=== PATIENT | male | born 1945 | race Caucasian/White ===

== ENCOUNTER → 2016-10-27 | Outpatient (CLI) | payer OTHER, BC ==
[2016-10-27 13:55] LABS: BLOOD UREA NITROGEN 22 mg/dl (7-18); GLUCOSE 91 mg/dl (70-99)
[2016-10-27 13:56] LABS: ALT/SGPT 65 U/L (12-78); AST/SGOT 26 U/L (15-37); BUN/CREATININE RATIO 22.4 (10-20); CALCIUM 8.5 mg/dl (8.5-10.1); CARBON DIOXIDE 26 mmol/L (21-32); CHLORIDE 108 mmol/L (98-107); CHOLESTEROL 105 mg/dl (0-200); SODIUM 142 mmol/L (136-145)
[2016-10-27 14:00] LABS: ALB/GLOB RATIO 1.1 (0.9-2); ALKALINE PHOSPHATASE 51 U/L (45-117); CHOLESTEROL/HDL RATIO 3.2; HDL CHOLESTEROL 33 mg/dl; LDL CHOLESTEROL CALCULATED 53 mg/dl; TRIGLYCERIDES 94 mg/dl (0-150); VERY LOW DENSITY LIPOPROT CALC 19 mg/dl
== END | disposition home or self-care (01) ==
LOC: C.LABPVFM 07:31
PROVIDERS: ATTEND Family Medicine
DX: E78.5 Hyperlipidemia, unspecified (principal); J38.7 Other diseases of larynx; L03.90 Cellulitis, unspecified

== ENCOUNTER → 2017-05-03 | Outpatient (CLI) | payer OTHER, BC ==
[2017-05-03 13:18] LABS: ALT/SGPT 61 U/L (12-78); AST/SGOT 31 U/L (15-37); BLOOD UREA NITROGEN 19 mg/dl (7-18); BUN/CREATININE RATIO 18.2 (10-20); CALCIUM 8.5 mg/dl (8.5-10.1); CARBON DIOXIDE 28 mmol/L (21-32); CHLORIDE 107 mmol/L (98-107); CREATININE 1.06 mg/dl (0.60-1.40); GLUCOSE 93 mg/dl (70-99); SODIUM 142 mmol/L (136-145)
[2017-05-03 13:21] LABS: ALB/GLOB RATIO 1.1 (0.9-2); ALKALINE PHOSPHATASE 53 U/L (45-117); CHOLESTEROL 110 mg/dl (0-200); CHOLESTEROL/HDL RATIO 3.2; HDL CHOLESTEROL 34 mg/dl; LDL CHOLESTEROL CALCULATED 58 mg/dl; TRIGLYCERIDES 91 mg/dl (0-150); VERY LOW DENSITY LIPOPROT CALC 18 mg/dl
== END | disposition home or self-care (01) ==
LOC: C.LABPVFM 07:32
PROVIDERS: ATTEND Family Medicine
DX: I86.8 Varicose veins of other specified sites (principal)

== ENCOUNTER → 2017-10-10 | Outpatient (CLI) | payer OTHER, BC ==
[2017-10-10 13:06] LABS: ALT/SGPT 60 U/L (12-78); AST/SGOT 30 U/L (15-37); BLOOD UREA NITROGEN 21 mg/dl (7-18); CALCIUM 9.4 mg/dl (8.5-10.1); CARBON DIOXIDE 29 mmol/L (21-32); CREATININE 0.97 mg/dl (0.60-1.40); GLUCOSE 96 mg/dl (70-99); POTASSIUM 3.8 mmol/L (3.5-5.1); SODIUM 141 mmol/L (136-145)
[2017-10-10 13:08] LABS: ALKALINE PHOSPHATASE 49 U/L (45-117); CHOLESTEROL 97 mg/dl (0-200); LDL CHOLESTEROL CALCULATED 45 mg/dl; TOTAL PROTEIN 7.4 gm/dl (6.4-8.2)
== END | disposition home or self-care (01) ==
LOC: C.LABPVFM 07:30
PROVIDERS: ATTEND Family Medicine
DX: Z00.00 Encounter for general adult medical examination without abnormal findings (principal); E78.5 Hyperlipidemia, unspecified

== ENCOUNTER 2024-09-27 05:01 | Inpatient (IN) ==
--- NOTE | 2024-09-27 05:24 | Emergency Department Note ---
History of Present Illness General Chief complaint: Flank Pain Stated complaint: LEFTSIDE BACK PAIN Time Seen by Provider: 09/27/24 05:11 History of Present Illness Maximum Pain Intensity: 9 This 78-year-old male presents the ER complaining of sudden onset of left flank pain tonight. Nothing makes it better or worse. No history kidney stones. Appendix has been surgically removed many years ago. Patient denies chest pain, dyspnea, vomiting, diarrhea, testicular pain, penile pain, urinary symptoms or any other medical complaints. Home Medications Medication Instructions Recorded Confirmed Type aspirin 81 mg tablet,delayed 81 mg PO Q2D 04/05/20 09/27/24 History release (Jeri Low Dose Aspirin) famotidine 20 mg tablet (Pepcid AC) 20 mg PO BID PRN Acid Reflux 04/05/20 09/27/24 History abecoliqfgqz-vrjkjbar-jtubdk tablet 1 tab PO DAILY 04/05/20 09/27/24 History atorvastatin 20 mg tablet 20 mg PO DAILY #90 tabs 09/09/21 09/27/24 Rx coenzyme Q10 100 mg capsule (Co 100 mg PO DAILY 09/27/24 09/27/24 History Q-10) ipratropium bromide 42 mcg (0.06 2 spray intranasal DAILY PRN Nasal 09/27/24 09/27/24 History %) nasal spray Congestion lisinopril 20 mg tablet 20 mg PO DAILY 09/27/24 09/27/24 History phenazopyridine 200 mg tablet 200 mg PO Q8H PRN pain #9 tabs 09/27/24 Rx (Pyridium) tamsulosin 0.4 mg capsule 0.4 mg PO HS #30 caps 09/27/24 Rx Allergies Allergy/AdvReac Type Severity Reaction Status Date / Time Penicillins Allergy Unknown Unknown Verified 09/27/24 11:54 Sulfa (Sulfonamide Allergy Unknown Unknown Verified 09/27/24 11:54 Antibiotics) Past Med/Surg History Problem List Hydronephrosis Ureteral calculus, left Ureterolithiasis (Acute) Renal colic on left side (Acute) Chronic pain of left ankle High ankle sprain of left lower extremity Personal history of nicotine dependence Impacted cerumen of both ears Impaired fasting glucose BPH (benign prostatic hyperplasia) Pelvic pain in male Urinary retention Mild emphysema Atherosclerosis Incidental lung nodule Lung nodule History of prior pipe smoking Varicose vein of leg Screening PSA (prostate specific antigen) Vitamin D deficiency Hyperlipidemia Excessive cerumen in both ear canals (Chronic) Dermatitis Allergic rhinitis Acid reflux disease Medical History Diverticulosis of colon Acute sinusitis Surgical History Hx of foot surgery Hx of appendectomy Family History Grandmother (Paternal) Stroke Grandmother (Paternal) No problems noted. Other Congestive heart failure Diabetes Denies family history of Ovarian cancer Prostate cancer Myocardial infarction Breast cancer Colorectal cancer Social History Smoking Status: Former smoker Tobacco Type: Pipe Second Hand Exposure: No; Do You Dip or Chew Tobacco: No; Hx Alcohol Use: Yes Alcohol type: beer Alcohol Intake Frequency: 2-3 x/Week Hx Substance Use: No Preferred Language: Vietnamese Communication Ability: Effective Deputy Administrator Required: No Beliefs That Will Affect Care: None marital status: Current Living Situation: Spouse current occupational status: retired Feels Safe at Home: Yes Childhood Exposure to Second-Hand Smoke: Yes caffeine: Yes Dental Care, Regularly: Yes Physical Activity Frequency: 3-4 Times per Week Seatbelt Use: always Sunscreen Use: Yes (sometimes) Review of Systems A total of 10 systems reviewed and were otherwise negative Physical Exam Vital Signs Vital Signs - 24 hr 09/27/24 05:05 09/27/24 05:34 09/27/24 05:49 Temperature 36.9 C Temperature Source Oral Pulse Rate 64 72 Pulse Rate [Apical] Pulse Rate from SpO2 Sensor Respiratory Rate 18 Respiratory Effort / Characteristics Non-Labored Spontaneous Respiratory Depth Normal Respiratory Pattern Regular Blood Pressure 138/79 155/81 H Blood Pressure [Left Arm] Blood Pressure Mean 98 112 Blood Pressure Mean [Left Arm] Blood Pressure Position Sitting Pulse Oximetry 96 Oxygen Delivery Method Room Air Sepsis Recent Fever Within 48 Hours No Sepsis New/Unexplained Change in Mental Status N/A Sepsis Action Taken by Nursing No Action Required 09/27/24 05:49 09/27/24 05:49 09/27/24 05:49 Temperature Temperature Source Pulse Rate Pulse Rate [Apical] Pulse Rate from SpO2 Sensor Respiratory Rate Respiratory Effort / Characteristics Respiratory Depth Respiratory Pattern Blood Pressure 155/81 H 155/81 H 155/81 H Blood Pressure [Left Arm] Blood Pressure Mean 112 112 112 Blood Pressure Mean [Left Arm] Blood Pressure Position Pulse Oximetry Oxygen Delivery Method Sepsis Recent Fever Within 48 Hours Sepsis New/Unexplained Change in Mental Status Sepsis Action Taken by Nursing 09/27/24 05:49 09/27/24 05:51 09/27/24 05:55 Temperature Temperature Source Pulse Rate 67 Pulse Rate [Apical] 67 Pulse Rate from SpO2 Sensor 69 Respiratory Rate 18 17 Respiratory Effort / Characteristics Non-Labored Spontaneous Respiratory Depth Normal Respiratory Pattern Regular Blood Pressure 155/81 H Blood Pressure [Left Arm] 155/81 H Blood Pressure Mean 112 Blood Pressure Mean [Left Arm] 105 Blood Pressure Position Pulse Oximetry 98 97 Oxygen Delivery Method Room Air Sepsis Recent Fever Within 48 Hours Sepsis New/Unexplained Change in Mental Status Sepsis Action Taken by Nursing 09/27/24 05:57 09/27/24 05:57 09/27/24 06:10 Temperature Temperature Source Pulse Rate 67 68 Pulse Rate [Apical] Pulse Rate from SpO2 Sensor 68 Respiratory Rate 18 15 Respiratory Effort / Characteristics Respiratory Depth Respiratory Pattern Blood Pressure 130/79 Blood Pressure [Left Arm] Blood Pressure Mean 99 Blood Pressure Mean [Left Arm] Blood Pressure Position Pulse Oximetry 97 96 Oxygen Delivery Method Room Air Sepsis Recent Fever Within 48 Hours Sepsis New/Unexplained Change in Mental Status Sepsis Action Taken by Nursing 09/27/24 06:10 09/27/24 06:10 09/27/24 06:10 Temperature Temperature Source Pulse Rate Pulse Rate [Apical] Pulse Rate from SpO2 Sensor Respiratory Rate Respiratory Effort / Characteristics Respiratory Depth Respiratory Pattern Blood Pressure 130/79 130/79 130/79 Blood Pressure [Left Arm] Blood Pressure Mean 99 99 99 Blood Pressure Mean [Left Arm] Blood Pressure Position Pulse Oximetry Oxygen Delivery Method Sepsis Recent Fever Within 48 Hours Sepsis New/Unexplained Change in Mental Status Sepsis Action Taken by Nursing 09/27/24 06:10 09/27/24 06:10 09/27/24 06:10 Temperature Temperature Source Pulse Rate Pulse Rate [Apical] Pulse Rate from SpO2 Sensor Respiratory Rate Respiratory Effort / Characteristics Respiratory Depth Respiratory Pattern Blood Pressure 130/79 130/79 130/79 Blood Pressure [Left Arm] Blood Pressure Mean 99 99 99 Blood Pressure Mean [Left Arm] Blood Pressure Position Pulse Oximetry Oxygen Delivery Method Sepsis Recent Fever Within 48 Hours Sepsis New/Unexplained Change in Mental Status Sepsis Action Taken by Nursing 09/27/24 06:10 09/27/24 06:10 09/27/24 06:10 Temperature Temperature Source Pulse Rate Pulse Rate [Apical] Pulse Rate from SpO2 Sensor Respiratory Rate Respiratory Effort / Characteristics Respiratory Depth Respiratory Pattern Blood Pressure 130/79 130/79 130/79 Blood Pressure [Left Arm] Blood Pressure Mean 99 99 99 Blood Pressure Mean [Left Arm] Blood Pressure Position Pulse Oximetry Oxygen Delivery Method Sepsis Recent Fever Within 48 Hours Sepsis New/Unexplained Change in Mental Status Sepsis Action Taken by Nursing 09/27/24 06:10 09/27/24 06:10 09/27/24 06:10 Temperature Temperature Source Pulse Rate Pulse Rate [Apical] Pulse Rate from SpO2 Sensor Respiratory Rate Respiratory Effort / Characteristics Respiratory Depth Respiratory Pattern Blood Pressure 130/79 130/79 130/79 Blood Pressure [Left Arm] Blood Pressure Mean 99 99 99 Blood Pressure Mean [Left Arm] Blood Pressure Position Pulse Oximetry Oxygen Delivery Method Sepsis Recent Fever Within 48 Hours Sepsis New/Unexplained Change in Mental Status Sepsis Action Taken by Nursing 09/27/24 06:10 09/27/24 06:10 09/27/24 06:10 Temperature Temperature Source Pulse Rate Pulse Rate [Apical] Pulse Rate from SpO2 Sensor Respiratory Rate Respiratory Effort / Characteristics Respiratory Depth Respiratory Pattern Blood Pressure 130/79 130/79 130/79 Blood Pressure [Left Arm] Blood Pressure Mean 99 99 99 Blood Pressure Mean [Left Arm] Blood Pressure Position Pulse Oximetry Oxygen Delivery Method Sepsis Recent Fever Within 48 Hours Sepsis New/Unexplained Change in Mental Status Sepsis Action Taken by Nursing 09/27/24 06:12 09/27/24 06:42 09/27/24 06:51 Temperature Temperature Source Pulse Rate 61 74 64 Pulse Rate [Apical] Pulse Rate from SpO2 Sensor 62 66 63 Respiratory Rate 12 13 12 Respiratory Effort / Characteristics Respiratory Depth Respiratory Pattern Blood Pressure Blood Pressure [Left Arm] Blood Pressure Mean Blood Pressure Mean [Left Arm] Blood Pressure Position Pulse Oximetry 95 93 92 Oxygen Delivery Method Sepsis Recent Fever Within 48 Hours Sepsis New/Unexplained Change in Mental Status Sepsis Action Taken by Nursing 09/27/24 06:53 09/27/24 06:53 09/27/24 06:53 Temperature Temperature Source Pulse Rate Pulse Rate [Apical] Pulse Rate from SpO2 Sensor Respiratory Rate Respiratory Effort / Characteristics Respiratory Depth Respiratory Pattern Blood Pressure 131/80 131/80 131/80 Blood Pressure [Left Arm] Blood Pressure Mean 104 104 104 Blood Pressure Mean [Left Arm] Blood Pressure Position Pulse Oximetry Oxygen Delivery Method Sepsis Recent Fever Within 48 Hours Sepsis New/Unexplained Change in Mental Status Sepsis Action Taken by Nursing 09/27/24 06:57 09/27/24 07:00 09/27/24 07:00 Temperature Temperature Source Pulse Rate 59 L Pulse Rate [Apical] Pulse Rate from SpO2 Sensor 61 Respiratory Rate 14 Respiratory Effort / Characteristics Respiratory Depth Respiratory Pattern Blood Pressure 128/72 128/72 Blood Pressure [Left Arm] Blood Pressure Mean 87 87 Blood Pressure Mean [Left Arm] Blood Pressure Position Pulse Oximetry 92 Oxygen Delivery Method Sepsis Recent Fever Within 48 Hours Sepsis New/Unexplained Change in Mental Status Sepsis Action Taken by Nursing 09/27/24 07:00 09/27/24 07:00 09/27/24 07:00 Temperature Temperature Source Pulse Rate Pulse Rate [Apical] Pulse Rate from SpO2 Sensor Respiratory Rate Respiratory Effort / Characteristics Respiratory Depth Respiratory Pattern Blood Pressure 128/72 128/72 128/72 Blood Pressure [Left Arm] Blood Pressure Mean 87 87 87 Blood Pressure Mean [Left Arm] Blood Pressure Position Pulse Oximetry Oxygen Delivery Method Sepsis Recent Fever Within 48 Hours Sepsis New/Unexplained Change in Mental Status Sepsis Action Taken by Nursing 09/27/24 07:00 09/27/24 07:00 09/27/24 07:00 Temperature Temperature Source Pulse Rate Pulse Rate [Apical] Pulse Rate from SpO2 Sensor Respiratory Rate Respiratory Effort / Characteristics Respiratory Depth Respiratory Pattern Blood Pressure 128/72 128/72 128/72 Blood Pressure [Left Arm] Blood Pressure Mean 87 87 87 Blood Pressure Mean [Left Arm] Blood Pressure Position Pulse Oximetry Oxygen Delivery Method Sepsis Recent Fever Within 48 Hours Sepsis New/Unexplained Change in Mental Status Sepsis Action Taken by Nursing 09/27/24 07:00 09/27/24 07:00 09/27/24 07:00 Temperature Temperature Source Pulse Rate Pulse Rate [Apical] Pulse Rate from SpO2 Sensor Respiratory Rate Respiratory Effort / Characteristics Respiratory Depth Respiratory Pattern Blood Pressure 128/72 128/72 128/72 Blood Pressure [Left Arm] Blood Pressure Mean 87 87 87 Blood Pressure Mean [Left Arm] Blood Pressure Position Pulse Oximetry Oxygen Delivery Method Sepsis Recent Fever Within 48 Hours Sepsis New/Unexplained Change in Mental Status Sepsis Action Taken by Nursing 09/27/24 07:00 09/27/24 07:00 09/27/24 07:02 Temperature Temperature Source Pulse Rate Pulse Rate [Apical] Pulse Rate from SpO2 Sensor Respiratory Rate 22 Respiratory Effort / Characteristics Respiratory Depth Respiratory Pattern Blood Pressure 128/72 128/72 Blood Pressure [Left Arm] Blood Pressure Mean 87 87 Blood Pressure Mean [Left Arm] Blood Pressure Position Pulse Oximetry Oxygen Delivery Method Sepsis Recent Fever Within 48 Hours Sepsis New/Unexplained Change in Mental Status Sepsis Action Taken by Nursing 09/27/24 07:09 09/27/24 07:12 09/27/24 07:24 Temperature Temperature Source Pulse Rate 63 61 62 Pulse Rate [Apical] Pulse Rate from SpO2 Sensor 64 61 62 Respiratory Rate 16 14 16 Respiratory Effort / Characteristics Respiratory Depth Respiratory Pattern Blood Pressure Blood Pressure [Left Arm] Blood Pressure Mean Blood Pressure Mean [Left Arm] Blood Pressure Position Pulse Oximetry 94 93 90 Oxygen Delivery Method Sepsis Recent Fever Within 48 Hours Sepsis New/Unexplained Change in Mental Status Sepsis Action Taken by Nursing VITALS: Vitals are noted on the nurse's note and reviewed by myself. Vital signs stable. GENERAL: Pleasant patient, in no acute distress, nondiaphoretic, well-developed well-nourished. SKIN: Capillary reflex less than 2 seconds. HEENT: Normocephalic. PERRLA. EOMI. Nares patent. Mucous membranes moist. Neck is supple without nuchal rigidity. HEART: Regular rate and rhythm LUNGS: Clear to auscultation bilaterally without wheezes, rales or rhonchi. No retractions or accessory muscle use. ABDOMEN: Positive bowel sounds x 4. Normal tympanic percussion. Soft, nontender, without masses or organomegaly. Hou sign negative. No guarding or rebound tenderness. no CVA tenderness MUSCULOSKELETAL: No gross musculoskeletal defects. NEURO: Patient was alert and oriented to person place and time. No focal neurological deficits. Course Administered Medications Discontinued Medications Cefazolin Sodium (Cefazolin 2,000 Mg/15 Ml Iv Push) Confirm Administered Dose 2,000 mg IV .STK-MED ONE Stop: 09/27/24 12:25 Last Admin: 09/27/24 14:29 Dose: Not Given Documented By: TBK Acetaminophen (Ofirmev) 1,000 mg in 100 mls @ 400 mls/hr IV NOW STA Stop: 09/27/24 05:31 Last Infusion: 09/27/24 06:12 Dose: Infused Documented By: pit recorder: 09/27/24 05:53 Dose: 400 mls/hr Documented By: JOHNATHAN Magnesium Sulfate/Dextrose (Magnesium Sulfate / D5w) 1 gm in 100 mls @ 100 mls/hr IV Q1H GIOVANNI Stop: 09/27/24 07:23 Last Infusion: 09/27/24 08:41 Dose: Infused Documented By: Admin: 09/27/24 07:11 Dose: 100 mls/hr Documented By: Infusion: 09/27/24 07:07 Dose: Infused Documented By: Admin: 09/27/24 06:07 Dose: 100 mls/hr Documented By: JOHNATHAN Sodium Chloride (Nss) 1,000 mls @ 125 mls/hr IV .Q8H GIOVANNI Stop: 09/28/24 07:44 Last Infusion: 09/27/24 12:28 Dose: Infused Documented By: Admin: 09/27/24 07:40 Dose: 125 mls/hr Documented By: SARTHAK Cefazolin Sodium (Ancef 2000mg) 2,000 mg in 15 mls @ 3.75 mls/min IV PREOP ONE; Protocol Stop: 09/27/24 12:25 Last Admin: 09/27/24 12:40 Dose: 3.75 mls/min Documented By: [id number] Ioversol (Optiray 320 100ml) 93 ml IV ONCE ONE Stop: 09/27/24 05:44 Last Admin: 09/27/24 05:44 Dose: 93 ml Documented By: TOI Tamsulosin HCl (Tamsulosin Hcl 0.4 Mg Cap) 0.4 mg PO NOW ONE Stop: 09/27/24 07:34 Last Admin: 09/27/24 07:40 Dose: 0.4 mg Documented By: SARTHAK Medical Decision Making Medical Records Attestation: I reviewed the patient's medical records. Home Medications Current Medication List: was personally reviewed by me Laboratory Data Attestation: I reviewed the patient's lab results. 09/27/24 05:25 09/27/24 05:25 Lab Results 09/27/24 09/27/24 09/27/24 Range/Units 05:18 05:25 05:31 WBC 7.47 (4.8-10.8) K/ul RBC 5.00 (4.70-6.10) M/uL Hgb 15.2 (14.0-18.0) g/dl POC Hgb 15.3 (14.0-18.0) g/dl Hct 45.0 (42.0-52.0) % POC Hct 45 (42-52) % MCV 90.0 (80.0-100.0) fL MCH 30.4 (25.0-34.0) pg MCHC 33.8 (32.0-36.0) g/dL RDW Std Deviation 42.9 (36.4-46.3) fL RDW Coeff of Payal 13.1 (11.5-14.5) % Plt Count 175 (130-400) K/uL MPV 9.1 L (9.4-12.4) fL Immature Gran % (Auto) 0.3 % Neut % (Auto) 67.2 % Lymph % (Auto) 22.8 % Sebastian % (Auto) 7.6 % Eos % (Auto) 1.6 % Baso % (Auto) 0.5 % Neut # (Auto) 5.02 (1.40-6.50) K/uL Lymph # (Auto) 1.70 (1.20-3.40) K/uL Sebastian # (Auto) 0.57 (0.11-0.59) K/uL Eos # (Auto) 0.12 (0.00-0.50) K/uL Baso # (Auto) 0.04 (0.00-0.20) K/uL Immature Gran # (Auto) 0.02 (0.01-0.20) K/uL POC Sodium 140 (135-144) mmol/L Sodium 139 (136-145) mmol/L POC Potassium 4.2 (3.3-5.0) mmol/L Potassium 4.2 (3.5-5.1) mmol/L POC Chloride 102 (101-112) mmol/L Chloride 104 (98-107) mmol/L Carbon Dioxide 30 (21-32) mmol/L POC Total CO2 26 (24-31) mmol/L Anion Gap 5 (3-11) POC Anion Gap 18.0 (16-25) mmol/L POC BUN 21 H (7-18) mg/dl BUN 21 (6-23) mg/dl Creatinine 0.97 (0.6-1.4) mg/dl POC Creatinine 1.0 (0.6-1.3) mg/dl Est Cr Clr Drug Dosing 67.9 ml/min eGFR 79.90 BUN/Creatinine Ratio 21.6 H (10-20) Glucose 122 H (70-99(Fasting)) mg/dl POC Glucose (other) 120 H (70-99) mg/dl Calcium 9.3 (8.6-10.3) mg/dl POC Ioniz Calcium Aryan 1.13 (1.12-1.32) mmol/l Total Bilirubin 0.8 (0.2-1.0) mg/dl AST 25 (13-39) U/L ALT 35 (7-52) U/L Alkaline Phosphatase 57 (34-104) U/L Total Protein 6.8 (6.0-8.3) gm/dl Albumin 4.2 (3.4-5.0) gm/dl Globulin 2.6 (2.5-4.0) gm/dl Albumin/Globulin Ratio 1.6 (0.9-2) Lipase 48 (11-82) U/L Urine Color Yellow Urine Appearance Clear (Clear) Urine pH 5.0 (4.5-7.5) Ur Specific [place] 1.018 (1.000-1.030) Urine Protein Negative (Negative) Urine Glucose (UA) Negative (Negative) Urine Ketones Negative (Negative) Urine Blood 2+ H (Negative) Urine Nitrite Negative (Negative) Urine Bilirubin Negative (Negative) Urine Urobilinogen Negative (Negative) Ur Leukocyte Esterase Negative (Negative) Urine WBC (Auto) 0-5 (0-5) /hpf Urine RBC (Auto) 6-10 H (0-2) /hpf U Hyaline Cast (Auto) 0-2 (0-2) /lpf U Epithel Cells (Auto) 0-2 (0-2) /hpf Urine Bacteria (Auto) None Seen (None Seen) Imaging Data Attestation: I personally reviewed and interpreted this imaging study as follows: Radiologist's Impression: Retrograde Pyelogram 09/27/24 00:00 FL retrograde includes kub CLINICAL HISTORY: LEFT STENT COMPARISON STUDY: CT of the abdomen and pelvis September 27, 2024. FLUOROSCOPY TIME: 4 seconds. Ka,r: 1.09 mGy FLUOROSCOPIC IMAGES: 1 FINDINGS: Fluoroscopy was provided during left retrograde pyelogram with left ureteral stent insertion. The proximal aspect of the stent is within the left renal pelvis. IMPRESSION: Fluoroscopy provided during left retrograde pyelogram with left ureteral stent insertion. ACT 112: Negative or not required by law. Electronically signed by: Yosef Brown M.D. 09/27/2024 1:13 PM MDM Narrative Prior records/ancillary studies reviewed. Triage Nursing notes reviewed. Additional history obtained from family. The patient's history was concerning for left flank and abdominal pain. Differential diagnosis: Etiologies such as appendicitis, diverticulitis, PUD, biliary pathology, UTI, pancreatitis, obstruction, mesenteric ischemia, aortic pathology, infections, inflammatory bowel disease, renal colic, as well as others were entertained. Physical examination findings: As above. ER treatment provided: An order was placed for continuous cardiac monitoring. The monitor shows a rate of 60-100 with a sinus rhythm per my Independent interpretation. Tylenol was ordered On reassessment the patient felt better. Diagnostics interpreted by me: The labs Independently Interpreted by myself revealed no worrisome leukocytosis, hematuria without UTI Imaging studies: Imaging was reviewed and read by radiology Consultation: A consultation was placed with the hospitalist. The case was discussed and diagnostics were reviewed. The patient was evaluated in the ER for further treatment. Exam and history seem consistent with left renal colic with ureterolithiasis. Patient was still in moderate amount of pain. The stone was quite large. Medicine was consulted case discussed. He will be evaluated for admission. By the evaluation outlined above emergent etiologies such as appendicitis, diverticulitis, PUD, biliary pathology, UTI, pancreatitis, obstruction, mesenteric ischemia, aortic pathology, infections, inflammatory bowel disease, as well as others were deemed relatively unlikely. The pt informed about the findings as listed above. All questions were answered and pleased with the treatment. The chart was completed utilizing [employer] Speech voice recognition software. Grammatical errors, random word insertions, pronoun errors, and incomplete sentences are an occassional consequence of this system due to software limitations, ambient noise, and hardware issues. Any formal questions or concerns about the content, text, or information contained within the body of this dictation should be directly addressed to the physician medication assistant for clarification. Impression & Plan Renal colic on left side, Ureterolithiasis Discharge Plan Visit Data Chief Complaint: Flank Pain Stated Complaint: LEFTSIDE BACK PAIN ED Provider: Howard Stroud ED Midlevel Provider: Janae Sahni Discharge Problem: Renal colic on left side, Ureterolithiasis Patient Disposition: Admitted As Inpatient Condition: Good Discharge Instructions Interventions: ED Discharge Assessment Last Done: 09/27/24 09:22
[2024-09-27 05:43] LABS: iSTAT Hemoglobin 15.3 g/dl (14.0-18.0); iSTAT Ionized Calcium 1.13 mmol/l (1.12-1.32); iSTAT Potassium 4.2 mmol/L (3.3-5.0)
[2024-09-27] MEDS: OPTIRAY 320 100ml IV ONE (05:44)
[2024-09-27 05:48] LABS: Appearance Urine Clear (Clear); Bacteria Urine Automated None Seen (None Seen); Bilirubin Urine Negative (Negative); Blood Urine 2+ (Negative); Cast Urine Automated 0-2 /lpf (0-2); Color Urine Yellow; Epithelial Cell Urine Auto 0-2 /hpf (0-2); Glucose Urine UA Negative (Negative); Ketones Urine Negative (Negative); Leukocyte Esterase Urine Negative (Negative); Nitrite Urine Negative (Negative); Protein Urine Negative (Negative); Specific Gravity Urine 1.018 (1.000-1.030); Urobilinogen Urine Negative (Negative); WBC Urine Automated 0-5 /hpf (0-5)
[2024-09-27] MEDS: ACETAMINOPHEN 1,000 MG/100 ML VIAL IV STA (05:53)
[2024-09-27 05:58] LABS: Basophils # (auto) 0.04 K/uL (0.00-0.20); Basophils % (auto) 0.5 %; Eosinophils # (auto) 0.12 K/uL (0.00-0.50); Eosinophils % (auto) 1.6 %; Hemoglobin 15.2 g/dl (14.0-18.0); Immature Granulocytes # (auto) 0.02 K/uL (0.01-0.20); Immature Granulocytes % (auto) 0.3 %; Lymphocytes % (auto) 22.8 %; Mean Corpuscular Hemoglobin 30.4 pg (25.0-34.0); Mean Corpuscular Hgb Conc 33.8 g/dL (32.0-36.0); Mean Platelet Volume 9.1 fL (9.4-12.4); Monocytes # (auto) 0.57 K/uL (0.11-0.59); Monocytes % (auto) 7.6 %; Neutrophils # (auto) 5.02 K/uL (1.40-6.50); Neutrophils % (auto) 67.2 %; Platelet Count 175 K/uL (130-400); RDW Coefficient of Variation 13.1 % (11.5-14.5); RDW Standard Deviation 42.9 fL (36.4-46.3); White Blood Count 7.47 K/ul (4.8-10.8)
[2024-09-27 06:04] LABS: Albumin Globulin Ratio 1.6 (0.9-2); Albumin Level 4.2 gm/dl (3.4-5.0); BUN Creatinine Ratio 21.6 (10-20); Bilirubin,Total 0.8 mg/dl (0.2-1.0); Calcium 9.3 mg/dl (8.6-10.3); Creatinine Clr Calc Pharmacy 67.9 ml/min; Globulin 2.6 gm/dl (2.5-4.0); Potassium 4.2 mmol/L (3.5-5.1); Total Protein 6.8 gm/dl (6.0-8.3)
[2024-09-27] MEDS: MAGNESIUM SULFATE / D5W 1 GM/100 ML BAG IV SCH (06:07)
--- NOTE | 2024-09-27 06:52 | CT Scan Report ---
EXAM: CT abd pelvis IV con only CLINICAL HISTORY: left flank pain TECHNIQUE: Multiple contiguous axial images were obtained from the level of diaphragm to the pubis symphysis. This study was acquired after the IV administration of iodinated contrast material, given the patient's indications for the examination. If IV contrast material had not been administered, the likelihood of detecting abnormalities relevant to the patient's condition would have been substantially decreased. Coronal and sagittal reformatted images were generated and reviewed to improve anatomic localization and optimize lesion detection. CT scan was performed according to ALARA (as low as reasonably achievable). COMPARISON: none FINDINGS: The visualized lung bases shows subpleural inetrlobular septal thickening. ABDOMEN/PELVIS: The liver is normal in size and attenuation. Simple hepatic cysts seen in segment VII, II and III, largest 1.2x1cm.There is no intra or extrahepatic biliary ductal dilatation. Hepatic vasculature is patent. The gallbladder is unremarkable. The spleen, pancreas, and adrenal glands are unremarkable. The kidneys are normal in size and attenuation. A calculus of size 10.3mm(HU~1300) seen at left pelvi-ureteric junction causing moderate hydronephrosis. Two calculi of size 6.2mm (HU~1180) and 3.1mm(HU~987) seen at lower pole calyx of left kidney. The ureters are normal in caliber and no ureteral calculi are seen. The bladder is normal in contour. No evidence of focal or diffuse bowel wall thickening or evidence of bowel obstruction is seen. Multiple small diverticuli of 2-3mm seen in sigmoid colon. No inflammatory changes. The appendix is not visualized . No adenopathy or fluid collections are seen. Significant degenerative changes in visualized spine. Diffuse atherosclerotic wall calcification of abdominal aorta. Grade I retrolisthesis of L4 over L5 causing bilateral moderate neural foraminal narrowing. Prostate grossly enlarged measures 83cc in volume. Small sliding hiatus hernia. Small fat containing umbilical hernia, defect measures 3x4mm. Small fat containing bilateral inguinal hernias. IMPRESSION: 1. Left pelvi-ureteric junction calculus causing moderate hydronephrosis with secondary left renal calyceal calculi and perinephric fluid. 2. Grade III prostatomegaly- Suggested serum PSA level correlation. 3. Small sliding hiatus hernia. 4. Uncomplicated sigmoid colon diverticulosis. 5. Small fat containing umbilical hernia. 6. Small fat containing bilateral inguinal hernias. 7. Grade I retrolisthesis of L4 over L5 causing bilateral moderate neural foraminal narrowing. 8. Interstitial lung disease changes in visualized sections of lungs. Electronically signed by Barney Robb 09-27-2024 06:52 AM
--- NOTE | 2024-09-27 07:37 | History & Physical Report ---
Date of Service September 27, 2024 Assessment & Plan (1) Ureteral calculus, left: (2) Hydronephrosis: Plan: This is a 78yo M with a PMH of ILD, dyslipidemia, HTN and other medical problems who presents with left flank pain starting last night and was found to have an obstructing L stone at [facility]. Admit to [facility]/surg Afebrile, no leukocytosis CT abd/pelvis with a 10.3mm calculus seen at left ureto-pelvic junction causing moderate hydronephrosis Started on Flomax Keep NPO Pain control with PRN IV Tylenol Discussed with urology who will evaluate (3) BPH (benign prostatic hyperplasia): Plan: Grade III prostatome[address]aly on CT abd/pelvis. Suggested serum PSA level correlation (4) Hypertension: Plan: Resume lisinopril once diet advanced (5) Hyperlipidemia: Plan: Resume atorvastatin once diet advanced (6) Incidental lung nodule: Plan: Noted on previous imaging, interstitial lung disease changes in visualized sections of lungs. ILD as well. Remote h/o smoking. Following in outpatient setting for serial imaging, due next week Incidental finding on CT abd/pelvis Fat containing bilateral inguinal hernias and small fat containing umbilical hernia noted on imaging. No pain DVT Ppx: SCDs Code status: FULL PCP: Orlin Moore Dispo: admitted to med/surg Patient seen in collaboration with Dr. Wilkinson. Please see addendum. I spent a total of 65 minutes coordinating, documenting, and providing care for this patient excluding time spent in the performance of separately billed services or time spent by another provider/QHP. History of Present Illness Chief Complaint: flank pain Primary Care Provider: Bradley Moore DO This is a 78yo M with a PMH of ILD, dyslipidemia, HTN and other medical problems who presents with left flank pain starting last night. Patient has some twinging pain on L flank extending to back that is exacerbated with movement but comfortable at rest. Thought at first pain was due to something he ate. Pain recurred around 0400 and was more severe in nature. No urinary problems. No F/C, lightheadedness, CP, SOB, N/V, hematuria, diarrhea or constipation. No history of kidney stones. Known lesion in R lung that he is undergoing surveillance for. ED course: Afebrile and no leukocytosis. CT abd/pelvis with a 10.3mm calculus seen at left pelvi-ureteric junction causing moderate hydronephrosis. Also with fat containing bilateral inguinal hernias and small fat containing umbilical hernia. Allergies Allergy/AdvReac Type Severity Reaction Status Date / Time Penicillins Allergy Unknown Unknown Verified 06/21/22 11:13 Sulfa (Sulfonamide Allergy Unknown Unknown Verified 06/21/22 11:13 Antibiotics) Home Medications Medication Instructions Recorded Confirmed Type aspirin 81 mg tablet,delayed 81 mg PO Q2D 04/05/20 09/27/24 History release (Jeri Low Dose Aspirin) famotidine 20 mg tablet (Pepcid AC) 20 mg PO BID PRN Acid Reflux 04/05/20 09/27/24 History nvvulbmkrzpf-inwasqtp-jwikan tablet 1 tab PO DAILY 04/05/20 09/27/24 History atorvastatin 20 mg tablet 20 mg PO DAILY #90 tabs 09/09/21 09/27/24 Rx coenzyme Q10 100 mg capsule (Co 100 mg PO DAILY 09/27/24 09/27/24 History Q-10) ipratropium bromide 42 mcg (0.06 2 spray intranasal DAILY PRN Nasal 09/27/24 09/27/24 History %) nasal spray Congestion lisinopril 20 mg tablet 20 mg PO DAILY 09/27/24 09/27/24 History Past Med/Surg History Problem List Hydronephrosis Ureteral calculus, left Ureterolithiasis (Acute) Renal colic on left side (Acute) Chronic pain of left ankle High ankle sprain of left lower extremity Personal history of nicotine dependence Impacted cerumen of both ears Impaired fasting glucose BPH (benign prostatic hyperplasia) Pelvic pain in male Urinary retention Mild emphysema Atherosclerosis Incidental lung nodule Lung nodule History of prior pipe smoking Varicose vein of leg Screening PSA (prostate specific antigen) Vitamin D deficiency Hyperlipidemia Excessive cerumen in both ear canals (Chronic) Dermatitis Allergic rhinitis Acid reflux disease Medical History Diverticulosis of colon Acute sinusitis Surgical History Hx of foot surgery Hx of appendectomy Family History Grandmother (Paternal) Stroke Grandmother (Paternal) No problems noted. Other Congestive heart failure Diabetes Denies family history of Ovarian cancer Prostate cancer Myocardial infarction Breast cancer Colorectal cancer Social History Smoking Status: Former smoker Tobacco Type: Pipe Smoking End Date: 2014; Second Hand Exposure: No; Do You Dip or Chew Tobacco: No; Hx Alcohol Use: Yes Alcohol Intake Frequency: 2-3 x/Week Hx Substance Use: No Preferred Language: Greenlandic marital status: Current Living Situation: Spouse current occupational status: retired Feels Safe at Home: Yes Childhood Exposure to Second-Hand Smoke: Yes caffeine: Yes Dental Care, Regularly: Yes Physical Activity Frequency: 3-4 Times per Week Seatbelt Use: always Sunscreen Use: Yes (sometimes) Review of Systems Review of Systems: At least ten systems reviewed and negative except as noted in the HPI. Physical Exam Physical Exam: Please see Dr. Wilkinson' addendum for physical exam. Results & Data Results & Data Vital Signs (Past 12 Hours) Vital Signs Temp Pulse Pulse Resp BP BP Pulse Ox 09/27/24 05:57 67 18 97 09/27/24 05:55 67 17 155/81 H 97 09/27/24 05:34 72 09/27/24 05:05 36.9 C 64 18 138/79 96 O2 Del Method 09/27/24 05:57 Room Air 09/27/24 05:55 Room Air 09/27/24 05:34 09/27/24 05:05 Room Air Laboratory Results Short CBC 09/27/24 Range/Units 05:25 WBC 7.47 (4.8-10.8) K/ul Hgb 15.2 (14.0-18.0) g/dl Hct 45.0 (42.0-52.0) % Plt Count 175 (130-400) K/uL BMP 09/27/24 05:25 Sodium 139 Potassium 4.2 Chloride 104 Carbon Dioxide 30 BUN 21 Creatinine 0.97 Glucose 122 H Calcium 9.3 Liver Function 09/27/24 Range/Units 05:25 Total Bilirubin 0.8 (0.2-1.0) mg/dl AST 25 (13-39) U/L ALT 35 (7-52) U/L Alkaline Phosphatase 57 (34-104) U/L Albumin 4.2 (3.4-5.0) gm/dl Urine 09/27/24 Range/Units 05:18 Urine Color Yellow Urine Appearance Clear (Clear) Urine pH 5.0 (4.5-7.5) Ur Specific [place] 1.018 (1.000-1.030) Urine Protein Negative (Negative) Urine Glucose (UA) Negative (Negative) Diagnostic Findings Abdomen/Pelvis CT 09/27/24 05:17 EXAM: CT abd pelvis IV con only CLINICAL HISTORY: left flank pain TECHNIQUE: Multiple contiguous axial images were obtained from the level of diaphragm to the pubis symphysis. This study was acquired after the IV administration of iodinated contrast material, given the patient's indications for the examination. If IV contrast material had not been administered, the likelihood of detecting abnormalities relevant to the patient's condition would have been substantially decreased. Coronal and sagittal reformatted images were generated and reviewed to improve anatomic localization and optimize lesion detection. CT scan was performed according to ALARA (as low as reasonably achievable). COMPARISON: none FINDINGS: The visualized lung bases shows subpleural inetrlobular septal thickening. ABDOMEN/PELVIS: The liver is normal in size and attenuation. Simple hepatic cysts seen in segment VII, II and III, largest 1.2x1cm.There is no intra or extrahepatic biliary ductal dilatation. Hepatic vasculature is patent. The gallbladder is unremarkable. The spleen, pancreas, and adrenal glands are unremarkable. The kidneys are normal in size and attenuation. A calculus of size 10.3mm(HU~1300) seen at left pelvi-ureteric junction causing moderate hydronephrosis. Two calculi of size 6.2mm (HU~1180) and 3.1mm(HU~987) seen at lower pole calyx of left kidney. The ureters are normal in caliber and no ureteral calculi are seen. The bladder is normal in contour. No evidence of focal or diffuse bowel wall thickening or evidence of bowel obstruction is seen. Multiple small diverticuli of 2-3mm seen in sigmoid colon. No inflammatory changes. The appendix is not visualized . No adenopathy or fluid collections are seen. Significant degenerative changes in visualized spine. Diffuse atherosclerotic wall calcification of abdominal aorta. Grade I retrolisthesis of L4 over L5 causing bilateral moderate neural foraminal narrowing. Prostate grossly enlarged measures 83cc in volume. Small sliding hiatus hernia. Small fat containing umbilical hernia, defect measures 3x4mm. Small fat containing bilateral inguinal hernias. IMPRESSION: 1. Left pelvi-ureteric junction calculus causing moderate hydronephrosis with secondary left renal calyceal calculi and perinephric fluid. 2. Grade III prostatomegaly- Suggested serum PSA level correlation. 3. Small sliding hiatus hernia. 4. Uncomplicated sigmoid colon diverticulosis. 5. Small fat containing umbilical hernia. 6. Small fat containing bilateral inguinal hernias. 7. Grade I retrolisthesis of L4 over L5 causing bilateral moderate neural foraminal narrowing. 8. Interstitial lung disease changes in visualized sections of lungs. Electronically signed by Barney Robb 09-27-2024 06:52 AM Supervising Physician Co-Signing Physician Notes I have seen and discussed the case with the collaborating advanced practitioner. I agree with the above H&P. I have reviewed and confirmed the patients medical history, the findings on physical examination, and the patients diagnosis and treatment plan with Leo WEBSTER and agree with the information documented. In short, Mr. Benjamin is a 78 year old gentleman who is admitted for left renal colic and noted to have large left UPJ stone thats obstructing. Patient otherwise in normal state of health. Reports discomfort stable at time of exam GENERAL APPEARANCE: AxOx4, generally well-appearing M no acute distress. HEENT: NC, AT. MMM. EOMI, clear conjunctiva, oropharynx clear. NECK: Supple without lymphadenopathy. No stiffness or restricted ROM. HEART: Normal rate and regular rhythm, normal S1/S1, no m/r/g LUNGS: CTAB, moving air well. No crackles or wheezes are heard. ABDOMEN: Soft, nontender, nondistended with good bowel sounds heard. BACK: No CVAT on my exam, however reported previously, no obvious deformity. EXTREMITIES: Without cyanosis, clubbing or edema. NEUROLOGICAL: Grossly nonfocal. Alert and oriented, moving all 4 extremities. CN not formally tested but appear grossly intact. Skin: Warm and dry without any rash. : #Large obstructing nephrolithiasis with hydronephrosis NPO for cystoscopy this afternoon analgesia prn Follow up postop Agree with plan as above I spent a total of 35 minutes coordinating, documenting, and providing care for this patient excluding time spent in the performance of separately billed services. All of the aforementioned completed outside of collaborating with the assigned advanced practitioner for a full treatment plan. I have reviewed the advanced practitioner's documentation, and I agree with, and take responsibility for the plan of care (4) Hypertension Hypertension type: unspecified Qualified Code(s): I10 - Essential (primary) hypertension
[2024-09-27] MEDS: SODIUM CHLORIDE 0.9% 1,000 ML IV SCH (07:40)
[2024-09-27] MEDS: TAMSULOSIN HCL 0.4 MG CAP PO ONE (07:40)
[2024-09-27] MEDS ORDERED: ONDANSETRON INJ 2 MG/ML 2 ML VIAL IV PRN ×2 (09:22→12:19)
[2024-09-27] MEDS ORDERED: ACETAMINOPHEN 1,000 MG/100 ML VIAL IV PRN (09:22)
--- NOTE | 2024-09-27 09:51 | Urology Consultation ---
<Statement entered by Nilesh Hairston MD - 09/27/24 10:20> I have seen and discussed Mr. Benjamin with JS Landaverde and agree with the above documentation. Due to ongoing flank pain and large obstructing stone, we will plan on cystoscopy, left retrograde pyelogram and left ureteral stent placement. We reviewed risks and benefits of surgery. He expressed understan ding and would like to proceed. -Nilesh Hairston MD. Date of Consultation September 27, 2024 Assessment & Plan (1) Ureteral calculus, left: (2) Hydronephrosis: (3) Renal colic on left side: 78-year-old male admitted for left renal colic secondary to a large obstructing left UPJ stone Patient afebrile, hemodynamically stable Labs reviewedcreatinine 0.97, WBC 7.47, hemoglobin 15.2 Urinalysis demonstrated blood, 6-10 RBC, otherwise negative Reviewed and discussed CT imaging Discussed options for stone management including outpatient surgical options if pain is controlled vs cystoscopy and left ureteral stent placement today He would like to proceed with stent placement today He understands that stone treatment would take place at a later date Ureteral stents were discussed in detail Given ongoing renal colic will proceed to OR today for cystoscopy and left ureteral stent placement Risks and benefits of procedure to be reviewed with patient by Dr. Hairston Keep NPO for procedure Continue supportive care and medical management per hospital medicine service History of Present Illness Reason for Consultation: 10 mm left UPJ stone Attending Physician: Julita Wilkinson MD History of Present Illness This is a 78-year-old male who presented to the emergency department on 09/27/2024 for evaluation of acute onset of left flank pain. On arrival to ED, he was afebrile and hemodynamically stable. Lab work showed WBC 7.47, hemoglobin 15.2, creatinine 0.97. Urinalysis showed 2+ blood, 6-10 RBC, otherwise negative. Workup in ED included CT abdomen pelvis with IV contrast. CT imaging reviewed and demonstrated an obstructing 10.3 mm left UPJ stone resulting in moderate hydronephrosis. He was admitted to the hospital medicine service for further management. Urology is consulted for 10 mm left UPJ stone. Patient seen and examined in the emergency department. in room. He reports flank pain is improved at present. No prior history of kidney stones. He reports sudden onset of flank pain starting yesterday evening. No nausea or vomiting. No fever or chills. He is voiding spontaneously. No dysuria or hem aturia. He is appropriately NPO. Allergies Allergy/AdvReac Type Severity Reaction Status Date / Time Penicillins Allergy Unknown Unknown Verified 06/21/22 11:13 Sulfa (Sulfonamide Allergy Unknown Unknown Verified 06/21/22 11:13 Antibiotics) Home Medications Medication Instructions Recorded Confirmed Type aspirin 81 mg tablet,delayed 81 mg PO Q2D 04/05/20 09/27/24 History release (Jeri Low Dose Aspirin) famotidine 20 mg tablet (Pepcid AC) 20 mg PO BID PRN Acid Reflux 04/05/20 09/27/24 History fqybimohxsgg-qpuawnwc-nesahx tablet 1 tab PO DAILY 04/05/20 09/27/24 History atorvastatin 20 mg tablet 20 mg PO DAILY #90 tabs 09/09/21 09/27/24 Rx coenzyme Q10 100 mg capsule (Co 100 mg PO DAILY 09/27/24 09/27/24 History Q-10) ipratropium bromide 42 mcg (0.06 2 spray intranasal DAILY PRN Nasal 09/27/24 09/27/24 History %) nasal spray Congestion lisinopril 20 mg tablet 20 mg PO DAILY 09/27/24 09/27/24 History Patient History Medical History Diverticulosis of colon Acute sinusitis Surgical History Hx of foot surgery Hx of appendectomy Family History Grandmother (Paternal) Stroke Grandmother (Paternal) No problems noted. Other Congestive heart failure Diabetes Denies family history of Ovarian cancer Prostate cancer Myocardial infarction Breast cancer Colorectal cancer Social History Smoking Status: Former smoker Tobacco Type: Pipe Smoking End Date: 2014; Second Hand Exposure: No; Do You Dip or Chew Tobacco: No; Hx Alcohol Use: Yes Alcohol Intake Frequency: 2-3 x/Week Hx Substance Use: No Preferred Language: Khmer marital status: Current Living Situation: Spouse current occupational status: retired Feels Safe at Home: Yes Childhood Exposure to Second-Hand Smoke: Yes caffeine: Yes Dental Care, Regularly: Yes Physical Activity Frequency: 3-4 Times per Week Seatbelt Use: always Sunscreen Use: Yes (sometimes) Review of Systems Review of Systems: All systems reviewed & are unremarkable except as noted in HPI & below Physical Exam Constitutional: well developed and well nourished; no acute distress Respiratory: normal respiratory effort; no respiratory distress and no labored breathing Gastrointestinal (Abdomen): Inspection/Auscultation: abdomen normal to inspection Musculoskeletal: Head/Neck/Chest: normocephalic Neurologic: moves all extremities and awake Psychiatric: Orientation: alert and oriented x 3 Results & Data Vital Signs (Past 12 Hours) Vital Signs Temp Pulse Pulse Resp BP BP Pulse Ox 09/27/24 09:33 74 09/27/24 09:30 76 09/27/24 09:30 18 09/27/24 09:00 74 18 143/83 H 95 09/27/24 07:54 61 14 97 09/27/24 07:24 62 16 90 09/27/24 07:12 61 14 93 09/27/24 07:09 63 16 94 09/27/24 07:02 22 09/27/24 07:00 128/72 09/27/24 07:00 128/72 09/27/24 07:00 128/72 09/27/24 07:00 128/72 09/27/24 07:00 128/72 09/27/24 07:00 128/72 09/27/24 07:00 128/72 09/27/24 07:00 128/72 09/27/24 07:00 128/72 09/27/24 07:00 128/72 09/27/24 07:00 128/72 09/27/24 07:00 128/72 09/27/24 07:00 128/72 09/27/24 06:57 59 L 14 92 09/27/24 06:53 131/80 09/27/24 06:53 131/80 09/27/24 06:53 131/80 09/27/24 06:51 64 12 92 09/27/24 06:42 74 13 93 09/27/24 06:12 61 12 95 09/27/24 06:10 130/79 09/27/24 06:10 130/79 09/27/24 06:10 130/79 09/27/24 06:10 130/79 09/27/24 06:10 130/79 09/27/24 06:10 130/79 09/27/24 06:10 130/79 09/27/24 06:10 130/79 09/27/24 06:10 130/79 09/27/24 06:10 130/79 09/27/24 06:10 130/79 09/27/24 06:10 130/79 09/27/24 06:10 130/79 09/27/24 06:10 130/79 09/27/24 06:10 130/79 09/27/24 06:10 130/79 09/27/24 05:57 68 15 96 09/27/24 05:57 67 18 97 09/27/24 05:55 67 17 155/81 H 97 09/27/24 05:51 67 18 98 09/27/24 05:49 155/81 H 09/27/24 05:49 155/81 H 09/27/24 05:49 155/81 H 09/27/24 05:49 155/81 H 09/27/24 05:49 155/81 H 09/27/24 05:34 72 09/27/24 05:05 36.9 C 64 18 138/79 96 O2 Del Method 09/27/24 09:33 09/27/24 09:30 09/27/24 09:30 09/27/24 09:00 Room Air 09/27/24 07:54 09/27/24 07:24 09/27/24 07:12 09/27/24 07:09 09/27/24 07:02 09/27/24 07:00 09/27/24 07:00 09/27/24 07:00 09/27/24 07:00 09/27/24 07:00 09/27/24 07:00 09/27/24 07:00 09/27/24 07:00 09/27/24 07:00 09/27/24 07:00 09/27/24 07:00 09/27/24 07:00 09/27/24 07:00 09/27/24 06:57 09/27/24 06:53 09/27/24 06:53 09/27/24 06:53 09/27/24 06:51 09/27/24 06:42 09/27/24 06:12 09/27/24 06:10 09/27/24 06:10 09/27/24 06:10 09/27/24 06:10 09/27/24 06:10 09/27/24 06:10 09/27/24 06:10 09/27/24 06:10 09/27/24 06:10 09/27/24 06:10 09/27/24 06:10 09/27/24 06:10 09/27/24 06:10 09/27/24 06:10 09/27/24 06:10 09/27/24 06:10 09/27/24 05:57 09/27/24 05:57 Room Air 09/27/24 05:55 Room Air 09/27/24 05:51 09/27/24 05:49 09/27/24 05:49 09/27/24 05:49 09/27/24 05:49 09/27/24 05:49 09/27/24 05:34 09/27/24 05:05 Room Air PG Care Time/CCT Total # of Minutes Spent Total Time Spent with Patient: Total time spent is greater than 50% in coordination of care (as documented) at patient's floor/unit and/or counseling patient: Coding Level of Care Code 17020 INT INP/OBS CARE 2/55MIN Diagnoses Ureteral calculus, left N20.1 Hydronephrosis N13.30 Renal colic on left side N23
--- OUTSIDE RECORDS SUMMARY | 2024-09-27 11:14 | External Medical Summary | Summary of Care ---
Author Name Unknown Organization [facility] Address [address] [place] [address] Phone [phone] Care Team Providers Care Senior Executive Compensation Analyst Name Role Phone MaribethBradley diaz Ramon JARQUIN Primary Care Provider Encounter Details Date Type Department Care Team (Late st Contact Info) Description 08/08/2024 Population Health External Data Unspecified Department Allergies Active Allergy Reactions Criticality Noted Date Comments Penicillin G Hives 08/21/2012 Sulfa Antibiotics Unknown 08/21/2012 documented as of this encounter (statuses as of 08/08/2024) Medications OCUVITE PO TABS 1 tab daily Ac tive Multivitamin Adults 50+ Oral Tablet Take by mouth . Acti ve Famotidine 20 MG Oral Tablet (Pepcid) Take 1 Tablet by mouth in the morning and 1 Tablet before bedtime. Uses as needed. Active CoQ10 100 MG Oral Capsule Take by mouth . A ctive Atorvastatin Calcium 20 MG Oral Tablet (Lipitor) TAKE 1 TABLET DAILY 90 Tablet 3 4 Active Aspirin 81 MG Oral Capsule Take by mouth. Ac tive Triamcinolone Acetonide 0.1 % External Cream (Aristocort)Ind ications:Dermat itis Apply to rash on arms twice daily until clear 45 g 5 4 Active Additional Information Patient not taking.Reported on 04/26/2024 Ipratropium [place] 0.06 % Nasal Solution (Atrovent) Administer 2 Sprays into each nostril 4 times a day as needed for Rhinitis. for runny nose 45 mL 3 4 Active Lisinopril 20 MG Oral Tablet (Prinivil)Indic ations:HTN, goal below 140/90 Take 1 Tablet by mouth in the morning. 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 Actinic keratosis 02/26/2013 History of colonic polyps 04/09/2005 Overview (04/17/2017): large polyp removed ICD-10 update of inactive term documented as of this encounter (statuses as of 08/08/2024) Immunizations Name Administration Dates Next Due COVID-19 mRNA, LNP-s, No Pre serve, 2-Dose Series ([employer]) 06/14/2021,09/28/2020,08/24/2020 Pneumococcal Conjugate Vacc, 13 Valent (Prevnar) 05/02/2016 Pneumococcal Polysaccharide PPV23 (Pneumovax) 05/02/2016 Seasonal Influenza, High Dos e, Trivalent, PF, IM (Fluzone HD) 04/29/2024,05/17/2019 Seasonal Influenza, Quadriva lent Hd (Fluzone Hd) 05/18/2023,05/09/2022,04/21/2021 TD, Preservative Free 07/30/2007 TDAP (age 10 and older)(Boostrix) 04/05/2020 documented as of this encounter Social History Tobacco Use Types Packs/Day Years Used Date Smoking Tobacco: Former Pipe Q uit: 08/21/2014 Cigars Quit: 08/21/19 15 Smokeless Tobacco: Never Comments:Pt smoked pipe and cigars for 50 yeas and quit 8 years ago. Alcohol Use Standard Drinks/Week Comments Yes 0 (1 standard drink = 0.6 oz pur e alcohol) occasional Hunger Vital Sign Answer Date Recorded Within the past 12 months, y ou worried that your food would run out before you got the money to buy more. Never true 12/22/19 23 Within the past 12 months, t he food you bought just didn't last and you didn't have money to get more. Never true 12/21/2022 Sex and Gender Information Value Date Recorded Sex Assigned at Male 12/21/2022 4:05 PM EDT Legal Sex Male 4:55 AM EST Gender Identity Male 12/21/2022 4:05 PM EDT Sexual Orientation Straight 12/21/2022 4: 05 PM EDT documented as of this encounter Plan of Treatment Upcoming Encounters Date Type Department Care Team (Late st Contact Info) Description 09/30/2024 10:30 AM EDT Imaging Radiology [facility] [facility] [address] [facility] [place] [address] 10/07/2024 8:00 AM EDT Office Visit Pulmonary Medicine, [facility] [address] [facility] [place] [address] Garcia Ugalde MD [address] [facility] [place] [address] 10/14/2024 10:00 AM EDT Office Visit Family Practice [facility] [address] [place] [address] Bradley Moore, DO [address] [place] [address] 12/19/2024 10:15 AM EDT Office Visit Dermatology [facility] [place] [address] [place] [address] Jose Power MD [address] [facility] [place] [address] Health Maintenance Due Date Last Done Comments Depression Screening 1957 Hepatitis C Screening 11/22/1963 Zoster Vaccines (1 of 2) 11/22/1995 Adult Wellness Visit 11/22/2011 COVID-19 Vaccine ( season) 2024 06/14/2021, 09/28/2020, 08/24/2020 GFR 10/05/2024 10/06/2023, 02/14, 08/25/2022, Additional history exists Albumin/Creatinine Ratio 03/02/2026 03/02/2023 DTap/Tdap Vaccines (2 - Td or Tdap) 04/05/2030 04/05/2020, 07/30/2007 Pneumococcal Vaccine: 50+ Years Completed 05/02/2016, 05/02/2016 RETIRED - COLONOSCOPY-EVERY 5 YRS AGES 18-100 Discontinued 12/03/2021, 12/03/2021, 09/02/2015, Additional history exists Influenza Vaccine (FLU shot) Completed 04/29/2024, 05/18/2023, 05/09/2022, Additional history exists HPV (Gardasil) Vaccine Aged Out No lo nger eligible based on patient's age to complete this topic Hepatitis B Vaccine Aged Out No longe r eligible based on patient's age to complete this topic MENINGOCOCCAL (MENACTRA/MENVEO) Aged Out No longer eligible based on patient's age to complete this topic documented as of this encounter Medical Devices Implanted Type Area Associate Principal Device Identifier Shelf Expiration Date Model / Serial / Lot Lens Li61ao 13.00mm 20.00 - [id number] - [id number] Implanted:Qty: 1 on 11/07/2023 by Aidan Salmon MD at OR [facility] Right: Eye [employer] 04/15/2028 [id number] / [id number] / [id number] Lens Li61ao 13.00mm 18.50 - [id number] - [id number] Implanted:Qty: 1 on 2023 by Aidan Salmon MD at OR [facility] Left: Eye [employer] 07/16/2028 [id number] / [id number] / [id number] documented as of this encounter Advance Directives * Full Code (Latest Code Status on File) Date Activated Date Inactivated Comments 2023 9:21 AM 2023 3:35 PM This order ref lects the patients wishes and were consensually agreed upon. Question Answer Comments Discussion of Advance Directives occurred with: Patient Does the patient have a Living Will? No Does the patient have Health Care Power of Attor miguelina? No * Full Code Date Activated Date Inactivated Comments 11/07/2023 11:45 AM 11/07/2023 5:44 PM This order reflects the patients wishes and were consensually agreed upon. Question Answer Comments Discussion of Advance Directives occurred with: Patient Does the patient have a Living Will? No Does the patient have Health Care Power of Attor miguelina? No * Full Code Date Activated Date Inactivated Comments 10/06/2022 7:09 AM 10/06/2022 3:23 PM This order r eflects the patients wishes and were consensually agreed upon. Question Answer Comments Discussion of Advance Directives occurred with: Patient Care Teams Senior Executive Compensation Analyst Relationship Specialty Start Date End Date Bradley Moore DO [address] [place] [address] PCP - General Family Medicine 08/30/21 documented as of this encounter
--- OUTSIDE RECORDS SUMMARY | 2024-09-27 11:15 | External Medical Summary | Summary of Care ---
Author Name Unknown Organization [facility] Address [address] [place] [address] Phone [phone] Care Team Providers Care Material Yard Clerk Name Role Phone Bradley Moore DO Primary Care Provider [phone] Reason for Visit * Reason Comments eRx-Medication Refill Encounter Details Date Type Department Care Team (Late st Contact Info) Description 05/04/2024 Refill Family Practice [facility] 200 [facility] [place] [address] Bradley Moore DO [address] [place] [address] HTN, goal below 140/90 Allergies Active Allergy Reactions Criticality Noted Date Comments Penicillin G Hives 08/21/2012 Sulfa Antibiotics Unknown 08/21/2012 documented as of this encounter (statuses as of 05/06/2024) Medications Medication Sig Dispensed Refills Start Date End Date Status OCUVITE PO TABS 1 tab daily Active Multivitamin Adults 50+ Oral Tablet Take by mouth . Acti ve Famotidine 20 MG Oral Tablet (Pepcid) Take 1 Tablet by mouth in the morning and 1 Tablet before bedtime. Uses as needed. Active CoQ10 100 MG Oral Capsule Take by mouth . Active Lisinopril 20 MG Oral Tablet (Prinivil)Indicatio ns:HTN, goal below 140/90 TAKE 1 TABLET BY MOUTH EVERY DAY IN THE MORNING 90 Tablet 3 08/11/2023 Active Atorvastatin Calcium 20 MG Oral Tablet (Lipitor) TAKE 1 TABLET DAILY 90 Tablet 3 11/17/2023 Active Aspirin 81 MG Oral Capsule Take by mouth. Active Triamcinolone Acetonide 0.1 % External Cream (Aristocort)Indicat ions:Dermatitis Apply to rash on arms twice daily until clear 45 g 5 12/22/2023 Active Additional Information Patient not taking.Reported on 04/26/2024 Ipratropium [place] 0.06 % Nasal Solution (Atrovent) Administer 2 Sprays into each nostril 4 times a day as needed for Rhinitis. 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 Never true 12/21/2022 Utilities Answer Date Recorded Do you have trouble paying y our heating, water, or electric bill? (Adult - for ages 18 years and over) Not on file 01/02/2024 Is your family able to pay t he heat, water, or electric bill? (Household - for ages 0-17 years) Not on file 01/02/2024 Does your family have access to good internet? (Household - for ages 0-17 years) Not on file 01/02/2024 Social Connections Answer Date Recorded How often do you feel lonely or isolated from those around you? (Adult - for ages 18 years and over) Not on file 01/02/2024 Sex and Gender Information Value Date Recorded Sex Assigned at Male 12/21/2022 4:05 PM EDT Gender Identity Male 12/21/2022 4:05 PM EDT Sexual Orientation Straight 12/21/2022 4: 05 PM EDT Job Start Date Occupation Industry Not on file Not on file Not on file documented as of this encounter Miscellaneous Notes * Telephone Encounter - Adelina Genao [facility] - 05/06/2024 1:10 PM EDTRefused Prescriptions: Disp Refills Lisinopril 20 MG Oral Tablet (Prinivil) 90 Tab*3 Sig: TAKE 1 TABLET BY MOUTH EVERY DAY IN THE MORNINGRefused By: ADELINA GENAO for Refusal: Too soon------- documented in this encounter Plan of Treatment Upcoming Encounters Date Type Department Care Team (Late st Contact Info) Description 10/07/2024 8:20 AM EDT Office Visit Pulmonary Medicine, [facility] [address] [facility] [place] [address] Garcia Ugalde MD [address] [place] [address] 10/14/2024 10:00 AM EDT Office Visit Family Practice [facility] [address] [facility] [place] [address] Bradley Moore, [address] [facility] [place] [address] 12/19/2024 10:15 AM EDT Office Visit Dermatology [facility] [address] [facility] [place] [address] Jose Power MD [address] [facility] [place] [address] Health Maintenance Due Date Last Done Comments Depression Screening 1957 Hepatitis C Screening 11/22/1963 Zoster Vaccines (1 of 2) 11/22/1995 Adult Wellness Visit 11/22/2011 COVID-19 Vaccine ( season) 2024 06/14/2021, 09/28/2020, 08/24/2020 GFR 10/05/2024 10/06/2023, 02/14, 08/25/2022, Additional history exists Albumin/Creatinine Ratio 03/02/2026 03/02/2023 DTap/Tdap Vaccines (2 - Td or Tdap) 04/05/2030 04/05/2020, 07/30/2007 Pneumococcal Vaccine: 65+ Years Completed 05/02/2016, 05/02/2016 RETIRED - COLONOSCOPY-EVERY [...] this encounter Medical Devices Implanted Type Area Closet Organizer Device Identifier Shelf Expiration Date Model / Serial / Lot Lens Li61ao 13.00mm 20.00 - [id number] - [id number] Implanted:Qty: 1 on 11/07/2023 by Aidan Salmon MD at OR [facility] Right: Eye [employer] 04/15/2028 [id number] / [id number] / [id number] Lens Li61ao 13.00mm 18.50 - [id number] - [id number] Implanted:Qty: 1 on 2023 by Aidan Salmon MD at OR [facility] Left: Eye [employer] 07/16/2028 [id number] / [id number] / [id number] documented as of this encounter Visit Diagnoses Diagnosis HTN, goal below 140/90 Unspecified essential hypertension documented in this encounter Advance Directives * Full Code [...] Advance Directives occurred with: Patient Care Teams Material Yard Clerk Relationship Specialty Start Date End Date Bradley Moore DO [facility] [place] [address] PCP - General Family Medicine 08/30/21 documented as of this encounter
--- OUTSIDE RECORDS SUMMARY | 2024-09-27 11:15 | External Medical Summary | Summary of Care ---
Author Name Unknown Organization [facility] Address [address] [place] [address] Phone [phone] Care Team Providers Care Hothouse Worker Name Role Phone Hesham Spain DO Primary Care Provider [phone] Reason for Visit * Reason Onset Date Comments Medication Refill 07/29/2024 Encounter Details Date Type Department Care Team (Late st Contact Info) Description 07/29/2024 Refill Family Practice [facility] [address] [facility] [place] [address] Hesham Spain DO [address] [place] [address] HTN, goal below 140/90 Allergies Active Allergy Reactions Criticality Noted Date Comments Penicillin G Hives 08/21/2012 Sulfa Antibiotics Unknown 08/21/2012 documented as of this encounter (statuses as of 07/30/2024) Medications OCUVITE PO TABS 1 tab daily Active Multivitamin Adults 50+ Oral Tablet Take by mouth . Ac tive Famotidine 20 MG Oral Tablet (Pepcid) Take [...] tive Triamcinolone Acetonide 0.1 % External Cream (Aristocort)In dications:Derm atitis Apply to rash on arms twice daily until clear 45 g 5 4 Active Additional Information Patient not taking.Reported on 04/26/2024 Ipratropium [place] 0.06 % Nasal Solution (Atrovent) Administer 2 Sprays into each nostril 4 times a day as needed for Rhinitis. for runny nose 45 mL 3 4 Active Lisinopril 20 MG Oral Tablet (Prinivil)Kaylah cations:HTN, goal below 140/90 Take 1 Tablet by mouth in the morning. 90 Tablet 5 Active Lisinopril 20 MG Oral Tablet (Prinivil)Kaylah cations:HTN, goal below 140/90 TAKE 1 TABLET BY MOUTH EVERY DAY IN THE MORNING 90 Tablet 3 4 07/29/19 25 Discontin ued(Refil l) documented as of this encounter (statuses as of 07/30/2024) Active Problems Problem Noted Date Diagnosed Date Hypertension 09/29/2022 Dyslipidemia 09/29/2022 Ankle pain, chronic 09/13/2022 Overview (09/13/2022): Added automatically from request for surgery [id number] ILD (interstitial lung disease) 05/09/2022 Gastroesophageal reflux disease without esophagi tis 05/09/2022 Lung nodule 05/09/2022 Pure hypercholesterolemia 03/01/2022 History of tobacco abuse 03/01/2022 Inflamed seborrheic keratosis 08/20/2013 Other seborrheic keratosis 08/20/2013 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 Actinic keratosis 02/26/2013 History of colonic polyps 04/09/2005 Overview (04/17/2017): large polyp removed ICD-10 update of inactive term documented as of this encounter (statuses as of 07/30/2024) Immunizations Name Administration Dates Next Due COVID-19 mRNA, LNP-s, No Pre serve, 2-Dose Series ([employer]) 06/14/2021,09/28/2020,08/24/2020 Pneumococcal Conjugate Vacc, 13 Valent (Prevnar) [...] PM EDT documented as of this encounter Miscellaneous Notes * Telephone Encounter - Tomy Cole RPh - 07/30/2024 9:23 AM ESTSigned Prescriptions: Disp Refills Lisinopril 20 MG Oral Tablet (Prinivil) 90 Tab*0 Sig: Take 1 Tablet by mouth in the morning.Authorizing Provider: HESHAM SPAIN User: TOMY COLE------ * Telephone Encounter - Tomy Cole RPh - 07/30/2024 9:22 AM EST RX authorized. Zero refills given. Patient will be due for labs. Tomy Lobato PharmD Clinical Pharmacist [facility] [phone] 07/30/2024, 9:22 AM * Telephone Encounter - Diana Reyes PHARM Tech - 07/29/2024 12:43 PM EST Did you pend patient's preferred pharmacy and medication before forwarding?yes [facility] [address] [address] Pending Prescriptions: Disp Refills Lisinopril 20 MG Oral Tablet (Prinivil) 90 Tab*3 Last Visit: 10/13/2023 (in office), Visit date not found (telemedicine) Next Visit: 10/14/2024 If no future appointments scheduled, and last appointment is greater than a year ago, please schedule patient for a follow-up appointment Last date the medication was ordered: 08/11/23 Is this request for a controlled substance?No Urine Drug Screen:No results found for this or any previous visit. Patient Phone Numbers Labs: Lab Results Component Value Date/Time CREAT 0.9 10/06/2023 09:02 AM CREAT 0.90 04/21/2021 12:00 AM POTASSIUM 4.5 10/06/2023 09:02 AM POTASSIUM 3.9 04/21/2021 12:00 AM TSH 1.27 09/01/2021 08:53 AM TSH 1.130 04/21/2021 12:00 AM LDL 65 10/06/2023 09:02 AM LDLCALC 56 04/21/2021 12:00 AM ALT 40 10/06/2023 09:02 AM HGBA1C 5.9 (A) 04/21/2021 12:00 AM documented in this encounter Plan of Treatment Upcoming Encounters Date Type Department Care Team (Casi Contact Info) Description 09/30/2024 10:30 AM EDT Imaging Radiology [facility] 1st Floor, [place] [address] [place] [id number] 10/07/2024 8:20 AM EDT Office Visit Pulmonary Medicine, [facility] [address] [facility] [place] [address] Garcia Ugalde MD [address] [place] [address] 10/14/2024 10:00 AM EDT Office Visit Family Practice [facility] [address] [place] [address] Hesham Spain DO 200 [facility] [place] [address] 12/19/2024 10:15 AM EDT Office Visit Dermatology [facility] [address] [place] [address] Jose Power MD [address] [place] [address] Health Maintenance Due Date Last Done Comments [...] this encounter Medical Devices Implanted Type Area Test Architect Device Identifier Shelf Expiration Date Model / Serial / Lot Lens Li61ao 13.00mm 20.00 - [id number] - [id number] Implanted:Qty: 1 on 11/07/2023 by Aidan Salmon MD at OR [facility] Right: Eye [employer] 04/15/2028 [id number] / [id number] / [id number] Lens Li61ao 13.00mm 18.50 - [id number] - [id number] Implanted:Qty: 1 on 2023 by Aidan Salmon MD at OR [facility] Left: Eye [employer] 07/16/2028 [id number] / [id number] / [id number] documented as of this encounter Visit Diagnoses [...] Advance Directives occurred with: Patient Care Teams Hothouse Worker Relationship Specialty Start Date End Date Hesham Spain DO [address] [place] [address] PCP - General Family Medicine 08/30/21 documented as of this encounter
--- OUTSIDE RECORDS SUMMARY | 2024-09-27 11:15 | External Medical Summary | Summary of Care ---
Author Name Unknown Organization [facility] Address [address] [place] [address] Phone [phone] Care Team Providers Care Manager General Name Role Phone Maribethjoe Bradley Ramon JARQUIN Primary Care Provider [phone] Reason for Visit * Reason Onset Date Comments Medication Administration 04/29/2024 Flu an d/or Pneumo Inj Encounter Details Date Type Department Care Team (Late st Contact Info) Description 04/29/2024 10:40 AM EDT Immunization Ancillary [facility] [address] [place] [address] Sp, Flu Shot [facility] [address] [place] [address] Need for prophylactic vaccination and inoculation against influenza* Allergies Active Allergy Reactions Criticality Noted Date Comments Penicillin G Hives 08/21/2012 Sulfa Antibiotics Unknown 08/21/2012 documented as of this encounter (statuses as of 04/29/2024) Medications Medication Sig Dispensed Refills Start Date [...] Information Patient not taking.Reported on 04/26/2024 Ipratropium [place] 0.06 % Nasal Solution (Atrovent) Administer 2 Sprays into each nostril 4 times a day as needed for Rhinitis. 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 Actinic keratosis 02/26/2013 History of colonic polyps 04/09/2005 Overview: large polyp removed ICD-10 update of inactive term documented as of this encounter (statuses as of 04/29/2024) Immunizations Name Administration Dates Next Due COVID-19 mRNA, LNP-s, No Pre serve, 2-Dose Series (Graduateland) 06/14/2021,09/28/2020,08/24/2020 Pneumococcal Conjugate Vacc, 13 Valent (Prevnar) [...] on file documented as of this encounter Patient Instructions * Patient Instructions* Allyn Llanes, MED ASSIST - 04/29/2024 10:38 AM EDT ~~PATIENT INSTRUCTIONS FOR FLU SHOT~~ Possible side effects of influenza vaccine, (flu shot), are usually mild and include: 1. Soreness or redness at injection site 2. Low grade fever 3. Body aches You may use Tylenol/Acetaminophen as needed for these symptoms. LET YOUR DOCTOR KNOW IMMEDIATELY IF YOU HAVE DIFFICULTY BREATHING OR SWALLOWING, EXPERIENCE ITCHINGOF FEET OR HANDS, HAVE SWELLING OF EYES, FACE OR INSIDE OF NOSE. documented in this encounter Progress Notes * Allyn Llanes MED ASSIST - 04/29/2024 10:35 AM EDT PRE - ADMINISTRATION DOCUMENTATION Are you experiencing any cold symptoms or fever? No Have you had Guillain-Ozark Syndrome (an illness that causes paralysis) within the last 6 weeks? No Have you had the flu shot in the past? YES Have you ever had a reaction to the flu shot? No JOHNATHAN Weller, 04/29/2024 10:35 AM Immunization Administration Documentation Time Out Procedure Performed: Yes Patient Identified (Ask Name/Date of ): Yes Does the patient have a fever greater than 101 degrees today? No Patient allergic to latex? No VFC Stock: No Immunization(s) verified: Yes, Immunization Name: Flu, VIS Sheet(s) given: Yes Verified Side and Site: Yes Verified Shot(s) with Parent(s)/Patient: Yes documented in this encounter Plan of Treatment Upcoming Encounters Date Type Department Care Team (Late st Contact Info) Description 10/07/2024 8:20 AM EDT Office Visit Pulmonary Medicine, [facility] [address] [facility] [place] [address] Garcia Ugalde MD [address] [place] [address] 10/14/2024 10:00 AM EDT Office Visit Family Practice [facility] [address] [facility] [place] [address] Bradley Moore, DO [address] [facility] [place] [address] 12/19/2024 10:15 AM EDT Office Visit Dermatology [facility] [address] [place] [address] Jose oPwer MD [address] [place] [address] Health Maintenance Due Date Last Done Comments Depression Screening 1957 Hepatitis C Screening 11/22/1963 Zoster Vaccines (1 of 2) 11/22/1995 Adult Wellness Visit 11/22/2011 COVID-19 Vaccine ( - season) 2024 06/14/2021, 09/28/2020, 08/24/2020 GFR 10/05/2024 [...] this encounter Medical Devices Implanted Type Area Network Operations Center Engineer Device Identifier Shelf Expiration Date Model / Serial / Lot Lens Li61ao 13.00mm 20.00 - [id number] - [id number] Implanted:Qty: 1 on 11/07/2023 by Aidan Salmon MD at OR [facility] Right: Eye [employer] 04/15/2028 [id number] / [id number] / [id number] Lens Li61ao 13.00mm 18.50 - [id number] - [id number] Implanted:Qty: 1 on 2023 by Aidan Salmon MD at OR [facility] Left: Eye [employer]OMB 07/16/2028 [id number] / [id number] / [id number] documented as of this encounter Visit Diagnoses Diagnosis Need for prophylactic vaccination and inoculation against influenza- Primary documented in this encounter Advance Directives * [...] Advance Directives occurred with: Patient Care Teams Manager General Relationship Specialty Start Date End Date Bradley Moore DO [address] [place], [place] [address] [address] PCP - General Family Medicine 08/30/21 documented as of this encounter
--- OUTSIDE RECORDS SUMMARY | 2024-09-27 11:15 | External Medical Summary | Summary of Care ---
Author Name Unknown Organization [facility] Address [address] [place] [address] Phone [phone] Care Team Providers Care Site Promotion Agent Name Role Phone DinoHesham garner Ramon JARQUIN Primary Care Provider [phone] Reason for Visit * Reason Comments Follow Up Patient here for a s kin check, hx of NMSC. He is not aware of any new or changing skin lesions. Encounter Details Date Type Department Care Team (Late st Contact Info) Description 04/26/2024 10:15 AM EDT Office Visit Dermatology [facility] 200 [facility] [place] [address] Jose Power MD [address] [place] [address] Actinic skin damage*; Seborrheic keratoses; Actinic keratosis; Hx of squamous cell carcinoma; Scar Allergies Active Allergy Reactions Criticality Noted Date Comments Penicillin G Hives 08/21/2012 Sulfa Antibiotics Unknown 08/21/2012 documented as of this encounter (statuses as of 04/26/2024) Medications Medication Sig Dispensed Refills Start Date [...] Information Patient not taking.Reported on 04/26/2024 Ipratropium [place] 0.06 % Nasal Solution (Atrovent) Administer 2 Sprays into each nostril 4 times a day as needed for Rhinitis. 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 Actinic keratosis 02/26/2013 History of colonic polyps 04/09/2005 Overview: large polyp removed ICD-10 update of inactive term documented as of this encounter (statuses as of 04/26/2024) Immunizations Name Administration Dates Next Due COVID-19 mRNA, LNP-s, No Pre serve, 2-Dose Series (Constant Contact) 06/14/2021,09/28/2020,08/24/2020 Pneumococcal Conjugate Vacc, 13 Valent (Prevnar) 05/02/2016 Pneumococcal Polysaccharide PPV23 (Pneumovax) 05/02/2016 Seasonal Influenza, High Dos e, Trivalent, PF, IM (Fluzone HD) 05/17/2019 Seasonal Influenza, Quadriva lent Hd (Fluzone Hd) [...] on file documented as of this encounter Progress Notes * Jose Power MD - 04/26/2024 10:16 AM EDT SUBJECTIVE: Chief Complaint: Chief Complaint Patient presents with Follow Up Patient here for a skin check, hx of NMSC. He is not aware of any new or changing skin lesions. HPI: Zay Benjamin is a 78 year old male seen for a full skin check for history of nonmelanoma skincancer. No spots of concern today DERMATOLOGIC HISTORY: Hx of NMSC and [place] REVIEW OF SYSTEMS: CONSTITUTIONAL: negative SKIN: No new or changing moles or rashes other than those noted in HPI HEME/LYMPH: No new or enlarging lumps or bumps OBJECTIVE: GEN: Healthy, alert, no distress, appears oriented, pleasant, and cooperative SKIN: Detailed exam of hair, face, trunk, arms, and legs Vertex scalp x5, left mandaen, right mandaen, frontal scalp x2, right forearm - x10 gritty erythematous macules/papules Well-healed scar(s) at primary site(s) without evidence of recurrence Scattered on face, chest, back - diffuse mottled hypopigmented and hyperpigmented macules without significant irregularity. Associated telangiectasias At the trunk and extremities are several scattered delong/brown hyperkeratotic stuck on appearing waxypapules. ASSESSMENT/PLAN: Actinic keratosis -The diagnosis and malignant potential of the lesion was explained. Treatment options were reviewedincluding cryotherapy, topical medications, and observation. All questions were addressed. Procedure - Cryotherapy (Premalignant Destruction) -The patient would like to proceed with cryosurgery;Cryosurgery explained to the patient, consent obtained, patient, site and procedure verified, and then cryotherapy was performed with Liquid Nitrogen via cryo spray unit to 10 lesions. Location noted in physical exam. Post op course explained. -Discussed that if any of these lesions fail to completely resolve after treatment patient should call me for re-evaluation Scar(s), History of Nonmelanoma Skin Cancer - Well healed scar(s) with no evidence of recurrence - Recommended periodic skin exams and instructed to call clinic if patient notices any changing lesions, including rapid enlargement, changes in color or shape or symptoms, bleeding, or other concerns. The common features and behavior of non-melanoma skin cancers (e.g. basal cell carcinoma/squamouscell carcinoma) as well as the features of melanoma were also reviewed. -Daily sun protection recommended including physical (i.e. clothing) and chemical blockers. Broad spectrum sunscreens with at least SPF 30 for UVA and UVA protection were recommended. Chronic Actinic Damage - Discussed that skin changes are due to chronic sun exposure. - Daily sun protection recommended as discussed above Seborrheic keratoses - The benign nature of these lesions was discussed with the patient and that no treatment is indicated today. Jose Power MD REF: SELF [address] ADDRESS AVAILABLE PCP: HESHAM MOORE [address] [place] [address] [phone] documented in this encounter Nursing Notes * Bren Lopez LPN - 04/26/2024 10:03 AM EDT Chief Complaint Patient presents with Follow Up Patient here for a skin check, hx of NMSC. He is not aware of any new or changing skin lesions. documented in this encounter Plan of Treatment Upcoming Encounters Date Type Department Care Team (Late st Contact Info) Description 04/30/2024 9:40 AM EDT Immunization Ancillary [facility] [address] [place] [address] Sp, Flu Shot Clinic 200 [facility] [place] [address] 10/07/2024 8:20 AM EDT Office Visit Pulmonary Medicine, [facility] [address] [place] [address] Garcia Ugalde MD [address] [place] [address] 10/14/2024 10:00 AM EDT Office Visit Family Practice [facility] [address] [facility] [place] [address] Hesham Moore DO [address] [facility] [place] [address] 12/19/2024 10:15 AM EDT Office Visit Dermatology [facility] [address] [facility] [place] [address] Jose Power MD [address] [facility] [place] [address] Health Maintenance Due Date Last Done Comments Depression Screening 1957 Hepatitis C Screening 11/22/1963 Zoster Vaccines (1 of 2) 11/22/1995 Adult Wellness Visit 11/22/2011 COVID-19 Vaccine ( season) 2024 06/14/2021, 09/28/2020, 08/24/2020 Influenza Vaccine (FLU shot) (#1) 2024 05/18/2023, 05/09/2022, 04/21/2021, Additional history exists GFR 10/05/2024 10/06/2023, 02/14, 08/25/2022, Additional history exists Albumin/Creatinine Ratio 03/02/2026 03/02/2023 DTap/Tdap Vaccines (2 - Td or Tdap) 04/05/2030 04/05/2020, 07/30/2007 Pneumococcal Vaccine: 65+ Years Completed 05/02/2016, 05/02/2016 RETIRED - COLONOSCOPY-EVERY 5 YRS AGES 18-100 Discontinued 12/03/2021, 12/03/2021, 09/02/2015, Additional history exists HPV (Gardasil) Vaccine Aged Out No lo nger eligible based on patient's age to complete this topic Hepatitis B Vaccine Aged Out No longe r eligible based on patient's age to complete this topic MENINGOCOCCAL (MENACTRA/MENVEO) Aged Out No longer eligible based on patient's age to complete this topic documented as of this encounter Medical Devices Implanted Type Area Hydro Excavation Operator Device Identifier Shelf Expiration Date Model / Serial / Lot Lens Li61ao 13.00mm 20.00 - [id number] - [id number] Implanted:Qty: 1 on 11/07/2023 by Aidan Salmon MD at OR [facility] Right: Eye [employer] 04/15/2028 [id number] / [id number] / [id number] Lens Li61ao 13.00mm 18.50 - [id number] - [id number] Implanted:Qty: 1 on 2023 by Aidan Salmon MD at OR [facility] Left: Eye [employer]OMB 07/16/2028 [id number] / [id number] / [id number] documented as of this encounter Visit Diagnoses Diagnosis Actinic skin damage- Primary Other dermatitis due to solar radiation Seborrheic keratoses Actinic keratosis Hx of squamous cell carcinoma Personal history of malignant neoplasm of other site Scar Scar condition and fibrosis of skin documented in this encounter Advance Directives * [...] Advance Directives occurred with: Patient Care Teams Site Promotion Agent Relationship Specialty Start Date End Date Hesham Moore DO [address] [place] [address] PCP - General Family Medicine 08/30/21 documented as of this encounter
[2024-09-27] MEDS ORDERED: ONDANSETRON INJ 2 MG/ML 2 ML VIAL ONE (11:51)
[2024-09-27] MEDS ORDERED: LIDOCAINE 2% 2 ML VIAL/AMP(20MG/ML) INFIL ONE (11:51)
[2024-09-27] MEDS ORDERED: PROPOFOL IV EMULSION 10 MG/ML 20 ML VIAL IV ONE ×2 (11:51→12:46)
--- NOTE | 2024-09-27 11:58 | Anesthesiology Consultation ---
Date of Service September 27, 2024 Assessment & Plan Chart Review Chart Review: Acceptable Risk for Surgery and Patient NOT seen in Pre Admission Testing Consults Requested none ASA [id number] Proposed Anesthesia Anesthesia Type: MAC History Surgery Operation Date: 09/27/24 09:55 Proposed Procedures p Cystoscopy, Left Ureteral Stent Placement - Nilesh Hairston MD Height/Weight Height: 5 ft 9 in Weight: 85.2 kg Allergies Allergy/AdvReac Type Severity Reaction Status Date / Time Penicillins Allergy Unknown Unknown Verified 09/27/24 11:54 Sulfa (Sulfonamide Allergy Unknown Unknown Verified 09/27/24 11:54 Antibiotics) Medications Home Medications Medication Instructions Recorded Confirmed Last Taken aspirin 81 mg tablet,delayed 81 mg PO Q2D 04/05/20 09/27/24 Unknown release (Jeri Low Dose Aspirin) famotidine 20 mg tablet (Pepcid AC) 20 mg PO BID PRN Acid Reflux 04/05/20 09/27/24 Unknown xpmwojaqprpf-ddspnwea-aowgeu tablet 1 tab PO DAILY 04/05/20 09/27/24 Unknown atorvastatin 20 mg tablet 20 mg PO DAILY #90 tabs 09/09/21 09/27/24 Unknown coenzyme Q10 100 mg capsule (Co 100 mg PO DAILY 09/27/24 09/27/24 Unknown Q-10) ipratropium bromide 42 mcg (0.06 2 spray intranasal DAILY PRN Nasal 09/27/24 09/27/24 Unknown %) nasal spray Congestion lisinopril 20 mg tablet 20 mg PO DAILY 09/27/24 09/27/24 Unknown Active Medications Generic Name Dose Route Start Last Admin Trade Name Freq PRN Reason Stop Dose Admin Sodium Chloride 1,000 mls @ 125 mls/hr 09/27/24 07:45 09/27/24 07:40 Nss IV 09/28/24 07:44 125 mls/hr .Q8H GIOVANNI Administration Past Medical History Medical History Diverticulosis of colon Acute sinusitis COPD/Emphysema Gerd ASCVD Ao Pulmonary nodule HLD Exercise / Class Metabolic Activity III < 4 Walking/Shop/Light housework Past Family History Family History Grandmother (Paternal) Stroke Grandmother (Paternal) No problems noted. Other Congestive heart failure Diabetes Denies family history of Ovarian cancer Prostate cancer Myocardial infarction Breast cancer Colorectal cancer Past Surgical History Surgical History Hx of foot surgery Hx of appendectomy Past Anesthesia History No Hx of Anesthesia Complications and No Family Hx of Anesthesia Complications History of PONV No Hx of PONV and No Hx of Motion Sickness Social History Smoking Status: Former smoker Do You Dip or Chew Tobacco: No Smoking End Date: 2014 Hx Alcohol Use: Yes Alcohol type: beer alcohol intake frequency: a few times a week Hx Substance Use: No substance use type: does not use Physical Exam Vital Signs Last Vital Signs Temp 36.6 C 09/27/24 11:31 Pulse 74 09/27/24 11:31 Resp 18 09/27/24 11:31 BP 116/72 09/27/24 11:31 Pulse Ox 94 09/27/24 11:31 O2 Del Method Room Air 09/27/24 11:31 Testing Laboratory Results 09/27/24 05:25 09/27/24 05:25 Urine Color Yellow 09/27/24 05:18 Urine Appearance Clear (Clear) 09/27/24 05:18 Urine pH 5.0 (4.5-7.5) 09/27/24 05:18 Ur Specific [place] 1.018 (1.000-1.030) 09/27/24 05:18 Urine Protein Negative (Negative) 09/27/24 05:18 Urine Glucose (UA) Negative (Negative) 09/27/24 05:18 Urine Ketones Negative (Negative) 09/27/24 05:18 Urine Nitrite Negative (Negative) 09/27/24 05:18 Ur Leukocyte Esterase Negative (Negative) 09/27/24 05:18 Urine WBC (Auto) 0-5 /hpf (0-5) 09/27/24 05:18 Urine RBC (Auto) 6-10 /hpf (0-2) H 09/27/24 05:18 U Hyaline Cast (Auto) 0-2 /lpf (0-2) 09/27/24 05:18 U Epithel Cells (Auto) 0-2 /hpf (0-2) 09/27/24 05:18 Urine Bacteria (Auto) None Seen (None Seen) 09/27/24 05:18 03/14/25 05:31 POC Glucose (other) 120 H Electrocardiogram Date: 08/27/22 Findings: + NSR @ (@ 71;? anter. infarct,age ?) Chest X-Ray Date: 08/27/22 Findings: + NAD, + cardiomegaly and + other (C/W emphysema)
[2024-09-27] MEDS ORDERED: fentaNYL citrate PF 100 MCG/2 ML VIAL ONE (12:01)
[2024-09-27] MEDS ORDERED: MIDAZOLAM HCL 1 MG/ML 2ML VIAL ONE (12:01)
[2024-09-27] MEDS ORDERED: NALOXONE HCL 0.4 MG/1 ML VIAL/CARP IV PRN (12:19)
[2024-09-27] MEDS ORDERED: FLUMAZENIL 0.1 MG/1 ML 10 ML VIAL IV PRN (12:19)
[2024-09-27] MEDS ORDERED: ATROPINE SULFATE 0.1 MG/ML 10ML SYR IV PRN (12:19)
[2024-09-27] MEDS ORDERED: ePHEDrine sulfate 50 MG/ML AMP IV PRN (12:19)
[2024-09-27] MEDS ORDERED: LABETALOL HCL IV 5 MG/ML 20ML IV PRN (12:19)
[2024-09-27] MEDS ORDERED: fentaNYL citrate PF 100 MCG/2 ML VIAL IV PRN (12:19)
[2024-09-27] MEDS ORDERED: PROMETHAZINE HCL 6.25 MG in SODIUM CHLORIDE 0.9% 50 ML IV PRN (12:19)
[2024-09-27] MEDS: ceFAZolin 2000MG 2,000 MG/15 ML SYR IV ONE (12:40)
--- NOTE | 2024-09-27 12:59 | Operative Report ---
PG Post Operative Report Pre & Post Diagnosis Operation Date: 09/27/24 09:55 Pre-Op Diagnosis: left kidney stone Post-Op Diagnosis: left kidney stone I identified the patient and participated in the time-out.: Yes Procedure Operation Date: 09/27/24 09:55 Actual Procedures p Cystoscopy, Left Ureteral Stent Placement(Left) - Nilesh Hairston MD Surgeon Nilesh Hairston MD [place] none Estimated Blood Loss 0 Findings Consistent with Post-Op Diagnosis Specimens none Drains 6 Tristanian x 26 cm double-J ureteral stent in the left ureter Anesthesia Type General Complications none Disposition Accompanied Patient To Recovery: Yes Disposition: Recovery Room Indications This is a 78-year-old male who presents to the emergency department was found to have a left ureteral stone. He is brought to the OR for left ureteral stent placement. Description of Procedure The patient was identified in the holding area and informed consent was confirmed. He was marked on the left side, then was taken to the operating room where anesthesia was initiated. He was placed in the dorsal lithotomy position with all pressure points appropriately padded. He was prepped and draped in the usual sterile fashion and a preoperative timeout was performed. A well-lubricated cystoscope was inserted per urethra and panendoscopy was performed. The pendulous urethra was normal with no strictures or mucosal abnormalities. The prostate was enlarged. His bladder appeared grossly normal with no tumors or stones appreciated. Ureteral orifices were in orthotopic position bilaterally. The left ureteral orifice was cannulated using a 0.038 inch zip wire. There was still some contrast in the left kidney from his prior CT scan, as well as a dark area suggestive of the stone. The wire was advanced to the upper pole. Over the wire, a 6 Tristanian x 26 cm double-J ureteral stent was advanced. When the wire was removed, there was a good curl in the kidney under fluoroscopic guidance. A curl was visualized in the bladder with the cystoscope. At this point the bladder was drained and all instrumentation was removed. The patient was then awakened from anesthesia and was brought to the PACU in stable condition. I attest to the content of the Intraoperative Record and any orders documented therein. Any exceptions are noted below.
--- NOTE | 2024-09-27 13:15 | Fluoroscopy Report ---
FL retrograde includes kub CLINICAL HISTORY: LEFT STENT COMPARISON STUDY: CT of the abdomen and pelvis September 27, 2024. FLUOROSCOPY TIME: 4 seconds. Ka,r: 1.09 mGy FLUOROSCOPIC IMAGES: 1 FINDINGS: Fluoroscopy was provided during left retrograde pyelogram with left ureteral stent insertio n. The proximal aspect of the stent is within the left renal pelvis. IMPRESSION: Fluoroscopy provided during left retrograde pyelogram with left ureteral stent insertion . ACT 112: Negative or not required by law. Electronically signed by: Yosef Brown M.D. 09/27/2024 1:13 PM
--- NOTE | 2024-09-27 13:25 | Anesthesiology Progress Note ---
Date of Service September 27, 2024 Anesthesia Post Procedure Vital Signs Vital Signs: Temp Pulse Pulse Resp BP BP Pulse Ox 09/27/24 13:20 70 18 116/71 99 09/27/24 13:10 69 18 116/75 99 09/27/24 13:02 36.4 C L 78 13 93/58 L 98 09/27/24 11:55 36.7 C 74 20 140/80 97 09/27/24 11:31 36.6 C 74 18 116/72 94 09/27/24 11:25 73 09/27/24 11:11 95 09/27/24 11:05 96 09/27/24 11:00 116/72 09/27/24 11:00 116/72 09/27/24 11:00 116/72 09/27/24 11:00 116/72 09/27/24 11:00 116/72 09/27/24 11:00 116/72 09/27/24 11:00 116/72 09/27/24 11:00 116/72 09/27/24 11:00 116/72 09/27/24 11:00 116/72 09/27/24 10:56 96 09/27/24 10:47 96 09/27/24 10:33 96 09/27/24 10:24 81 27 H 94 09/27/24 10:03 77 15 94 09/27/24 10:01 110/70 09/27/24 10:01 110/70 09/27/24 10:01 110/70 09/27/24 10:01 110/70 09/27/24 10:01 110/70 09/27/24 10:01 110/70 09/27/24 10:01 110/70 09/27/24 10:01 110/70 09/27/24 10:01 110/70 09/27/24 10:01 110/70 09/27/24 10:01 110/70 09/27/24 10:01 110/70 09/27/24 10:01 110/70 09/27/24 10:01 110/70 09/27/24 10:01 110/70 09/27/24 10:01 110/70 09/27/24 10:01 110/70 09/27/24 10:01 110/70 09/27/24 10:01 110/70 09/27/24 10:01 110/70 09/27/24 10:01 110/70 09/27/24 10:01 110/70 09/27/24 10:01 110/70 09/27/24 10:01 110/70 09/27/24 10:01 110/70 09/27/24 09:57 77 18 95 09/27/24 09:50 78 18 97 09/27/24 09:42 72 16 96 09/27/24 09:33 74 09/27/24 09:30 73 17 94 09/27/24 09:30 76 09/27/24 09:30 18 09/27/24 09:21 67 18 95 09/27/24 09:03 70 15 96 09/27/24 09:00 143/83 H 09/27/24 09:00 143/83 H 09/27/24 09:00 74 18 143/83 H 95 09/27/24 07:54 61 14 97 09/27/24 07:24 62 16 90 09/27/24 07:12 61 14 93 09/27/24 07:09 63 16 94 09/27/24 07:02 22 09/27/24 07:00 128/72 09/27/24 07:00 128/72 09/27/24 07:00 128/72 09/27/24 07:00 128/72 09/27/24 07:00 128/72 09/27/24 07:00 128/72 09/27/24 07:00 128/72 09/27/24 07:00 128/72 09/27/24 07:00 128/72 09/27/24 07:00 128/72 09/27/24 07:00 128/72 09/27/24 07:00 128/72 09/27/24 07:00 128/72 09/27/24 06:57 59 L 14 92 09/27/24 06:53 131/80 09/27/24 06:53 131/80 09/27/24 06:53 131/80 09/27/24 06:51 64 12 92 09/27/24 06:42 74 13 93 09/27/24 06:12 61 12 95 09/27/24 06:10 130/79 09/27/24 06:10 130/79 09/27/24 06:10 130/79 09/27/24 06:10 130/79 09/27/24 06:10 130/79 09/27/24 06:10 130/79 09/27/24 06:10 130/79 09/27/24 06:10 130/79 09/27/24 06:10 130/79 09/27/24 06:10 130/79 09/27/24 06:10 130/79 09/27/24 06:10 130/79 09/27/24 06:10 130/79 09/27/24 06:10 130/79 09/27/24 06:10 130/79 09/27/24 06:10 130/79 09/27/24 05:57 68 15 96 09/27/24 05:57 67 18 97 09/27/24 05:55 67 17 155/81 H 97 09/27/24 05:51 67 18 98 09/27/24 05:49 155/81 H 09/27/24 05:49 155/81 H 09/27/24 05:49 155/81 H 09/27/24 05:49 155/81 H 09/27/24 05:49 155/81 H 09/27/24 05:34 72 09/27/24 05:05 36.9 C 64 18 138/79 96 O2 Del Method O2 Flow Rate 09/27/24 13:20 Oxymask 2 09/27/24 13:10 Oxymask 6 09/27/24 13:02 Oxymask 10 09/27/24 11:55 Room Air 09/27/24 11:31 Room Air 09/27/24 11:25 09/27/24 11:11 09/27/24 11:05 09/27/24 11:00 09/27/24 11:00 09/27/24 11:00 09/27/24 11:00 09/27/24 11:00 09/27/24 11:00 09/27/24 11:00 09/27/24 11:00 09/27/24 11:00 09/27/24 11:00 09/27/24 10:56 09/27/24 10:47 09/27/24 10:33 09/27/24 10:24 09/27/24 10:03 09/27/24 10:01 09/27/24 10:01 09/27/24 10:01 09/27/24 10:01 09/27/24 10:01 09/27/24 10:01 09/27/24 10:01 09/27/24 10:01 09/27/24 10:01 09/27/24 10:01 09/27/24 10:01 09/27/24 10:01 09/27/24 10:01 09/27/24 10:01 09/27/24 10:01 09/27/24 10:01 09/27/24 10:01 09/27/24 10:01 09/27/24 10:01 09/27/24 10:01 09/27/24 10:01 09/27/24 10:01 09/27/24 10:01 09/27/24 10:01 09/27/24 10:01 09/27/24 09:57 09/27/24 09:50 09/27/24 09:42 09/27/24 09:33 09/27/24 09:30 09/27/24 09:30 09/27/24 09:30 09/27/24 09:21 09/27/24 09:03 09/27/24 09:00 09/27/24 09:00 09/27/24 09:00 Room Air 09/27/24 07:54 09/27/24 07:24 09/27/24 07:12 09/27/24 07:09 09/27/24 07:02 09/27/24 07:00 09/27/24 07:00 09/27/24 07:00 09/27/24 07:00 09/27/24 07:00 09/27/24 07:00 09/27/24 07:00 09/27/24 07:00 09/27/24 07:00 09/27/24 07:00 09/27/24 07:00 09/27/24 07:00 09/27/24 07:00 09/27/24 06:57 09/27/24 06:53 09/27/24 06:53 09/27/24 06:53 09/27/24 06:51 09/27/24 06:42 09/27/24 06:12 09/27/24 06:10 09/27/24 06:10 09/27/24 06:10 09/27/24 06:10 09/27/24 06:10 09/27/24 06:10 09/27/24 06:10 09/27/24 06:10 09/27/24 06:10 09/27/24 06:10 09/27/24 06:10 09/27/24 06:10 09/27/24 06:10 09/27/24 06:10 09/27/24 06:10 09/27/24 06:10 09/27/24 05:57 09/27/24 05:57 Room Air 09/27/24 05:55 Room Air 09/27/24 05:51 09/27/24 05:49 09/27/24 05:49 09/27/24 05:49 09/27/24 05:49 09/27/24 05:49 09/27/24 05:34 09/27/24 05:05 Room Air Transfer of Care Handoff Completed per policy Notes Mental Status: alert / awake / arousable Patient Amnestic to Procedure: Yes Nausea / Vomiting: adequately controlled Pain: adequately controlled Airway Patency, RR, SpO2: stable & adequate BP & HR: stable & adequate Hydration State: stable & adequate Anesthetic Complications: no major complications apparent
[2024-09-27] MEDS: ceFAZolin 2,000 MG/15 ML IV PUSH IV ONE (14:29)
[2024-09-27 14:52] VITALS: RESP 16
[2024-09-27] MEDS ORDERED: FAMOTIDINE 20 MG TAB PO PRN (15:10)
[2024-09-27] MEDS ORDERED: IPRATROPIUM BROMIDE NASAL SPRAY 0.06% 15ML NAE PRN (15:10)
[2024-09-27] MEDS ORDERED: ACETAMINOPHEN 500 MG TAB PO PRN (15:11)
[2024-09-27 16:00] VITALS: BP 154/80; PULSE 70; TEMP 97.9; O2SAT 96
--- NOTE | 2024-09-27 16:20 | Discharge Summary ---
Discharge Summary Date of Service September 27, 2024 Principal Dx & Hospital Course #1 = Principal Diagnosis (1) Ureteral calculus, left: (2) Hydronephrosis: This is a 78yo M with a PMH of ILD, dyslipidemia, HTN and other medical problems who presents with left flank pain starting last night and was found to have an obstructing L stone at [facility]. Afebrile, no leukocytosis, UA not suggestive of infection CT abd/pelvis with a 10.3mm calculus seen at left ureto-pelvic junction causing moderate hydronephrosis Underwent Cystoscopy, Left Ureteral Stent Placement(Left) by Dr. Hairston today (09/27/24) Feeling well post-procedure, VSS. Having intermittent dysuria but otherwise comfortable. Would like to go home this evening Continue Flomax HS till urology follow up PRN pyridium, tylenol and ibuprofen Urology to schedule follow up in 1-2 weeks (3) BPH (benign prostatic hyperplasia): Grade III prostatomegaly on CT abd/pelvis. Suggested serum PSA level with PCP/urology (4) Hypertension: Continue lisinopril (5) Hyperlipidemia: Continue atorvastatin (6) Incidental lung nodule: Noted on previous imaging, interstitial lung disease changes in visualized sections of lungs. ILD as well. Remote h/o smoking. Following in outpatient setting for serial imaging, due next week Incidental finding on CT abd/pelvis Fat containing bilateral inguinal hernias and small fat containing umbilical hernia noted on imaging. No pain Notes For Next Care Provider L kidney stone at [facility] s/p stent. Urology followup in 1-2 weeks Medication Changes From Visit Flomax nightly till uro follow up, PRN pyridium, tylenol and ibuprofen Admission HPI Per Admitting Provider This is a 78yo M with a PMH of ILD, dyslipidemia, HTN and other medical problems who presents with left flank pain starting last night. Patient has some twinging pain on L flank extending to back that is exacerbated with movement but comfortable at rest. Thought at first pain was due to something he ate. Pain recurred around 0400 and was more severe in nature. No urinary problems. No F/C, lightheadedness, CP, SOB, N/V, hematuria, diarrhea or constipation. No history of kidney stones. Known lesion in R lung that he is undergoing surveillance for. ED course: Afebrile and no leukocytosis. CT abd/pelvis with a 10.3mm calculus seen at left pelvi-ureteric junction causing moderate hydronephrosis. Also with fat containing bilateral inguinal hernias and small fat containing umbilical hernia. Admission Exam Per Admitting Provider GENERAL APPEARANCE: AxOx4, generally well-appearing M no acute distress. HEENT: NC, AT. MMM. EOMI, clear conjunctiva, oropharynx clear. NECK: Supple without lymphadenopathy. No stiffness or restricted ROM. HEART: Normal rate and regular rhythm, normal S1/S1, no m/r/g LUNGS: CTAB, moving air well. No crackles or wheezes are heard. ABDOMEN: Soft, nontender, nondistended with good bowel sounds heard. BACK: No CVAT on my exam, however reported previously, no obvious deformity. EXTREMITIES: Without cyanosis, clubbing or edema. NEUROLOGICAL: Grossly nonfocal. Alert and oriented, moving all 4 extremities. CN not formally tested but appear grossly intact. Skin: Warm and dry without any rash. Discharge Exam GENERAL APPEARANCE: AxOx4, generally well-appearing M no acute distress. HEENT: NC, AT. MMM. EOMI, clear conjunctiva, oropharynx clear. NECK: Supple without lymphadenopathy. No stiffness or restricted ROM. HEART: Normal rate and regular rhythm, normal S1/S1, no m/r/g LUNGS: CTAB, moving air well. No crackles or wheezes are heard. ABDOMEN: Soft, nontender, nondistended with good bowel sounds heard. BACK: No CVAT on my exam, however reported previously, no obvious deformity. EXTREMITIES: Without cyanosis, clubbing or edema. NEUROLOGICAL: Grossly nonfocal. Alert and oriented, moving all 4 extremities. CN not formally tested but appear grossly intact. Skin: Warm and dry without any rash. Updated Medication List Medication Instructions Recorded Confirmed Type aspirin 81 mg tablet,delayed 81 mg PO Q2D 04/05/20 09/27/24 History release (Jeri Low Dose Aspirin) famotidine 20 mg tablet (Pepcid AC) 20 mg PO BID PRN Acid Reflux 04/05/20 09/27/24 History sbvqqzynhcvd-hjujfrod-xioiph tablet 1 tab PO DAILY 04/05/20 09/27/24 History atorvastatin 20 mg tablet 20 mg PO DAILY #90 tabs 09/09/21 09/27/24 Rx coenzyme Q10 100 mg capsule (Co 100 mg PO DAILY 09/27/24 09/27/24 History Q-10) ipratropium bromide 42 mcg (0.06 2 spray intranasal DAILY PRN Nasal 09/27/24 09/27/24 History %) nasal spray Congestion lisinopril 20 mg tablet 20 mg PO DAILY 09/27/24 09/27/24 History phenazopyridine 200 mg tablet 200 mg PO Q8H PRN pain #9 tabs 09/27/24 Rx (Pyridium) tamsulosin 0.4 mg capsule 0.4 mg PO HS #30 caps 09/27/24 Rx Hospital Stay Data Consultations 09/27/24 07:38 ED Decision to Admit Stat 09/27/24 07:52 Consult Urology Routine Procedures Performed Operation Date: 09/27/24 09:55 Actual Procedures p Cystoscopy, Left Ureteral Stent Placement(Left) - Nilesh Hairston MD Diagnostic Imagining Performed 09/27/24 FL retrograde includes kub Routine 09/27/24 05:17 CT abd pelvis IV con only Stat Pending Results Patient Have Any Pending Studies at Discharge: No Discharge Instructions Given to Patient (Per Discharging Provider) MEDICATION CHANGES: Continue Flomax evening night until follow up with urology Please use Pyridium as needed for burning pain with urination Continue Tylenol or ibuprofen as needed for pain SUMMARY OF TEST RESULTS: You were admitted for flank pain and found to have an obstructing kidney stone CT abd/pelvis with left pelvic-ureteric junction calculus causing moderate hydronephrosis with secondary left renal calyceal calculi and perinephric fluid Underwent Cystoscopy, Left Ureteral Stent Placement(Left) by Dr. Hairston today Urinalysis without evidence of urinary tract infection PENDING TEST RESULTS: None RECOMMENDATIONS FOR FOLLOW-UP: Follow up with PCP as scheduled. Please follow up with [facility] ([phone]) in 1-2 weeks. Continue medication regimen as scheduled aside from changes noted above. OTHER INSTRUCTIONS: Seek medical attention if you have: * temperature above 101 * chest pain or trouble breathing * abdominal pain, nausea, vomiting * diarrhea, dark stools or bloody stools * any unanswered questions or concerns Call 911 if symptoms are severe. Please take good care of yourself. Call if you have any questions or problems. You can reach a [facility] hospitalist on duty at [facility] 24 hours a day by calling [phone]. Total Time Total Time Spent Total Time Spent (In Minutes): 40 Supervising Physician Co-Signing Physician Notes I have seen and discussed the case with the collaborating advanced practitioner. I agree with the above DS. I have reviewed and confirmed the patients medical history, the findings on physical examination, and the patients diagnosis and treatment plan with Leo WEBSTER and agree with the information documented. In short, Mr. Benjamin is a 78 year old gentleman who is admitted for left renal colic and noted to have large left [facility] stone that's obstructing. Patient is now s/p stent and doing well GENERAL APPEARANCE: AxOx4, generally well-appearing M no acute distress. HEENT: NC, AT. MMM. EOMI, clear conjunctiva, oropharynx clear. NECK: Supple without lymphadenopathy. No stiffness or restricted ROM. HEART: Normal rate and regular rhythm, normal S1/S1, no m/r/g LUNGS: CTAB, moving air well. No crackles or wheezes are heard. ABDOMEN: Soft, nontender, nondistended with good bowel sounds heard. BACK: No CVAT on my exam, EXTREMITIES: Without cyanosis, clubbing or edema. NEUROLOGICAL: Grossly nonfocal. Alert and oriented, moving all 4 extremities. CN not formally tested but appear grossly intact. Skin: Warm and dry without any rash. : #Large obstructing nephrolithiasis with hydronephrosis p Cystoscopy, Left Ureteral Stent Placement(Left) 09/27 no signs of infection Flomax and pyridum for spasm/dysuria urological follow up Agree with plan as above I spent a total of 5 minutes coordinating, documenting, and providing care for this patient excluding time spent in the performance of separately billed services. All of the aforementioned completed outside of collaborating with the assigned advanced practitioner for a full treatment plan. I have reviewed the advanced practitioner's documentation, and I agree with, and take responsibility for the plan of care
[2024-09-27] MEDS ORDERED: TAMSULOSIN HCL 0.4 MG CAP PO SCH (21:00)
[2024-09-28] MEDS ORDERED: CEROVITE ADV FORMULA TAB PO SCH (09:00)
[2024-09-28] MEDS ORDERED: ATORVASTATIN 20 MG TAB PO SCH (09:00)
[2024-09-28] MEDS ORDERED: NON-FORMULARY MEDICATION (Coenzyme Q10 [Co Q-10] 100 mg Capsule) PO SCH (09:00)
[2024-09-28] MEDS ORDERED: ASPIRIN 81 MG ECTAB PO SCH (09:00)
[2024-09-28] MEDS ORDERED: lisinopril 20 MG TAB PO SCH (09:00)
== END 2024-09-27 17:11 | disposition home or self-care (01) | DRG 660 ==
LOC: ED 05:01 → EDINP 07:42 → OBSVTOIN 07:42 → INTOOBSV 07:42 → EDINP 11:48 → 3W 13:55